=== PATIENT | male | born 1960 | race Caucasian/White ===

== ENCOUNTER → 2016-07-27 | Outpatient (CLI) | payer OTHER ==
[~2016-07-27] MED LIST: ASPI325T39 PO; GLC500 PO; METO50TA16 PO
[2016-07-27 14:03] LABS: BLOOD UREA NITROGEN 19 mg/dl (7-18); BUN/CREATININE RATIO 20.3 (10-20); CALCIUM 8.6 mg/dl (8.5-10.1); CARBON DIOXIDE 27 mmol/L (21-32); CHLORIDE 101 mmol/L (98-107); CHOLESTEROL 147 mg/dl (0-200); CREATININE 0.95 mg/dl (0.60-1.40); GLUCOSE 119 mg/dl (70-99); MAGNESIUM 1.9 mg/dl (1.8-2.4); POTASSIUM 3.7 mmol/L (3.5-5.1); SODIUM 135 mmol/L (136-145); TRIGLYCERIDES 248 mg/dl (0-150); VERY LOW DENSITY LIPOPROT CALC 50 mg/dl
[2016-07-27 14:08] LABS: CHOLESTEROL/HDL RATIO 4.2; HDL CHOLESTEROL 35 mg/dl
[2016-07-27 14:20] LABS: ESTIMATED AVERAGE GLUCOSE 120 mg/dl; HA1C FLAG Normal (Normal)
== END | disposition home or self-care (01) ==
LOC: C.LABSPEC 12:36
PROVIDERS: ATTEND Internal Medicine
DX: E11.9 Type 2 diabetes mellitus without complications (principal); E78.5 Hyperlipidemia, unspecified; I48.91 Unspecified atrial fibrillation

== ENCOUNTER → 2016-11-16 | Outpatient (CLI) | payer OTHER ==
[2016-11-16 13:33] LABS: ESTIMATED AVERAGE GLUCOSE 137 mg/dl; HA1C FLAG Normal (Normal)
[2016-11-16 14:24] LABS: ALT/SGPT 63 U/L (12-78); AST/SGOT 29 U/L (15-37); BLOOD UREA NITROGEN 17 mg/dl (7-18); BUN/CREATININE RATIO 17.1 (10-20); CALCIUM 8.6 mg/dl (8.5-10.1); CARBON DIOXIDE 28 mmol/L (21-32); CHLORIDE 106 mmol/L (98-107); GLUCOSE 120 mg/dl (70-99); SODIUM 141 mmol/L (136-145)
[2016-11-16 14:27] LABS: ALB/GLOB RATIO 1.5 (0.9-2); ALKALINE PHOSPHATASE 53 U/L (45-117); CHOLESTEROL 149 mg/dl (0-200); CHOLESTEROL/HDL RATIO 3.7; HDL CHOLESTEROL 40 mg/dl; TRIGLYCERIDES 269 mg/dl (0-150); VERY LOW DENSITY LIPOPROT CALC 54 mg/dl
== END | disposition home or self-care (01) ==
LOC: C.LABSPEC 12:39
PROVIDERS: ATTEND Internal Medicine
DX: E11.9 Type 2 diabetes mellitus without complications (principal); E78.5 Hyperlipidemia, unspecified; I48.91 Unspecified atrial fibrillation

== ENCOUNTER → 2017-02-22 | Outpatient (CLI) | payer OTHER ==
[2017-02-22 13:24] LABS: ESTIMATED AVERAGE GLUCOSE 140 mg/dl; HA1C FLAG Normal (Normal)
[2017-02-22 13:48] LABS: ALT/SGPT 56 U/L (12-78); BLOOD UREA NITROGEN 14 mg/dl (7-18); CALCIUM 8.7 mg/dl (8.5-10.1); CARBON DIOXIDE 24 mmol/L (21-32); CHLORIDE 106 mmol/L (98-107); CHOLESTEROL 149 mg/dl (0-200); GLUCOSE 139 mg/dl (70-99); SODIUM 140 mmol/L (136-145); TRIGLYCERIDES 322 mg/dl (0-150); VERY LOW DENSITY LIPOPROT CALC 64 mg/dl
[2017-02-22 13:51] LABS: RATIO 6.1 mcg/mg (0-30.0)
[2017-02-22 13:54] LABS: ALB/GLOB RATIO 1.5 (0.9-2); ALKALINE PHOSPHATASE 48 U/L (45-117); AST/SGOT 26 U/L (15-37); CHOLESTEROL/HDL RATIO 4.3; HDL CHOLESTEROL 35 mg/dl
== END | disposition home or self-care (01) ==
LOC: C.LABSPEC 12:15
PROVIDERS: ATTEND Internal Medicine
DX: E11.9 Type 2 diabetes mellitus without complications (principal); E78.5 Hyperlipidemia, unspecified; I48.0 Paroxysmal atrial fibrillation

== ENCOUNTER → 2017-08-30 | Outpatient (CLI) | payer OTHER ==
[2017-08-30 14:24] LABS: HEMOGLOBIN A1C 6.6 % (4.5-5.6)
[2017-08-30 16:13] LABS: BLOOD UREA NITROGEN 16 mg/dl (7-18); CARBON DIOXIDE 25 mmol/L (21-32); CREATININE 1.12 mg/dl (0.60-1.40); GLUCOSE 147 mg/dl (70-99); SODIUM 136 mmol/L (136-145)
[2017-08-30 16:17] LABS: CHOLESTEROL 149 mg/dl (0-200); LDL CHOLESTEROL (DIRECT) 75 mg/dl
== END | disposition home or self-care (01) ==
LOC: C.LABSPEC 12:44
PROVIDERS: ATTEND Internal Medicine
DX: E11.9 Type 2 diabetes mellitus without complications (principal); I48.91 Unspecified atrial fibrillation; E78.5 Hyperlipidemia, unspecified

== ENCOUNTER 2022-04-18 03:53 | Observation (INO) ==
[2022-04-18] MEDS ORDERED: SODIUM CHLORIDE 0.9% 1000ML 1,000 ML IV SCH (04:15)
[2022-04-18] MEDS ORDERED: METOPROLOL TARTRATE 1 MG/ML VIAL IV STA (04:19)
[2022-04-18 04:44] LABS: Basophils # (auto) 0.06 K/uL (0-0.2); Basophils % (auto) 0.4 %; Eosinophils # (auto) 0.08 K/uL (0-0.50); Eosinophils % (auto) 0.6 %; Hematocrit (blood only) 47.3 % (40.1-51.0); Hemoglobin 17.4 g/dl (14.0-18.0); Immature Granulocytes # (auto) 0.07 K/uL (0.00-0.02); Immature Granulocytes % (auto) 0.5 %; Lymphocytes # (auto) 2.39 K/uL (1.2-3.4); Lymphocytes % (auto) 16.6 %; Mean Corpuscular Hemoglobin 30.5 pg (25.0-34.0); Mean Corpuscular Hgb Conc 36.8 g/dL (32.0-36.0); Mean Corpuscular Volume 82.8 fL (80.0-100.0); Mean Platelet Volume 9.1 fL (9.4-12.4); Monocytes # (auto) 1.21 K/uL (0.24-0.82); Monocytes % (auto) 8.4 %; Neutrophils # (auto) 10.59 K/uL (1.4-6.5); Neutrophils % (auto) 73.5 %; Platelet Count 192 K/uL (130-400); RDW Coefficient of Variation 12.7 % (11.5-14.5); RDW Standard Deviation 37.6 fL (36.4-46.3); Red Blood Count 5.71 M/uL (4.63-6.08)
[2022-04-18 05:01] LABS: INR 1.1 (0.9-1.1); Partial Thromboplastin Ratio 1.3; Partial Thromboplastin Time 36.8 Seconds (21.0-31.0)
[2022-04-18 05:11] LABS: Troponin I High Sensitivity 6.3 pg/ml (0-20)
[2022-04-18] MEDS ORDERED: SODIUM CHLORIDE 0.9% 1000ML 250 ML IV ONE (05:41)
[2022-04-18] MEDS ORDERED: SODIUM CHLORIDE 0.9% 1000ML 1,000 ML IV ONE (05:41)
[2022-04-18 05:45] LABS: Albumin Globulin Ratio 1.7 (0.9-2); Albumin Level 4.3 gm/dl (3.4-5.0); BUN Creatinine Ratio 27.3 (10-20); Calcium 9.7 mg/dl (8.5-10.1); Creatinine Clr Calc Pharmacy 89.3 ml/min; Est GFR (African American) 108.2 ml/min; Est GFR (Non-African American) 93.4 ml/min; Globulin 2.5 gm/dl (2.5-4.0); Magnesium 1.6 mg/dl (1.7-2.4); Potassium 4.1 mmol/L (3.5-5.1); Total Protein 6.8 gm/dl (6.0-8.3)
[2022-04-18] MEDS ORDERED: CEFEPIME 2,000 MG/20 ML VIAL IV STA (05:45)
[2022-04-18 05:56] LABS: Adenovirus PCR Not Detected (NotDetected); Bordetella parapertussis PCR Not Detected (NotDetected); Bordetella pertussis PCR Not Detected (NotDetected); Chlamydia pneumoniae PCR Not Detected (NotDetected); Coronavirus 229E PCR Not Detected (NotDetected); Coronavirus CoV-2 (COVID19)PCR Not Detected (NotDetected); Coronavirus HKU1 PCR Not Detected (NotDetected); Coronavirus NL63 PCR Not Detected (NotDetected); Coronavirus OC43PCR Not Detected (NotDetected); Human Metapneumovirus PCR Not Detected (NotDetected); Influenza A PCR Not Detected (NotDetected); Influenza B PCR Not Detected (NotDetected); Mycoplasma pneumoniae PCR Not Detected (NotDetected); Parainfluenza Virus 2 PCR Not Detected (NotDetected); Parainfluenza Virus 3 PCR Not Detected (NotDetected); Parainfluenza Virus 4 PCR Not Detected (NotDetected); Respiratory Syncytial VirusPCR Not Detected (NotDetected); Rhinovirus/Enterovirus PCR Not Detected (NotDetected)
[2022-04-18 06:07] LABS: Parainfluenza Virus 1 PCR DETECTED (NotDetected)
[2022-04-18] MEDS ORDERED: dilTIAZem HCl 5 MG/ML 5 ML VIAL IV STA ×2 (06:22→07:16)
[2022-04-18] MEDS ORDERED: LACTATED RINGER'S 1,000 ML IV STA (06:30)
[2022-04-18] MEDS: MAGNESIUM SULFATE / D5W 1 GM/100 ML BAG IV SCH ×2 (06:39→09:00)
--- NOTE | 2022-04-18 06:55 | XRay Report ---
XR chest 1V portable CLINICAL HISTORY: Cough, tachycardia. COMPARISON STUDY: Chest radiograph April 28, 2019. FINDINGS: Lung volumes are normal. Lungs are clear. Left lower lung consolidation shown on prior exam of April 28, 2019 has resolved. There is no pneumothorax or pleural effusion. Mild cardiomegaly i s unchanged. Mediastinal contours are normal. There is no evidence for pulmonary edema. IMPRESSION: No acute cardiopulmonary findings. ACT 112: Negative or not required by law. Electronically signed by: Sourav Cain M.D. 04/18/2022 6:53 AM
[2022-04-18 07:00] LABS: HCO3 VBG 21 mmol/L; Oxygen Saturation VBG 79.3 %; PCO2 VBG 34 mmHg (38-50); PO2 VBG 46 mmHg
[2022-04-18] MEDS ORDERED: DOXYCYCLINE HYCLATE 100 MG in DEXTROSE 5% 100 ML IV STA (07:02)
--- NOTE | 2022-04-18 07:02 | History & Physical Report ---
Date of Service April 18, 2022 Assessment & Plan (1) Severe sepsis: Plan: SIRS plus lactic acidosis Secondary to complicated bronchitis Patient positive for Parainfluenza virus type I Rapid A. fib secondary to above History of A. fib status post ablation on Xarelto Medication noncompliance and anxiety contributory hypertension, stable DM2 on oral medications, well-controlled as of recent hemoglobin A1c of 6.7 last August 2021 ongoing tobacco abuse PCU CS, doxycycline IVF, follow lactic acid Facilitate Flecainide and metoprolol hold medications (Patient has taken morning doses of both cardiac medications at the ER already.) Patient counseled regarding need to take flecainide as prescribed twice daily dosing Titrate beta-omid Rx as needed IV Cardizem bolus 1 dose Anxiolytic as needed Update [facility] Cardiology consult is A. fib uncontrolled following initial intervention (Patient known to [facility].) Basal bolus insulin, ISS BG goal 1 10-1 40, carb count coverage DVT prophylaxis. Xarelto Full code Text document was generated using [employer] voice recognition software. It may contain grammatical or spelling errors. Kindly contact undersigned for clarification of any documentation item in question. History of Present Illness Chief Complaint: Palpitations, cough, shortness of breath Primary Care Provider: Christ Turpin MD History obtained from patient, family, and records. Medical history significant for A. fib status post ablation on Xarelto, hypertension, DM2 on oral medications, ongoing tobacco abuse. Last 2010 for new onset A. fib. Patient discharged on Metoprolol and Pradaxa. 2 weeks history of junky cough symptoms and shortness of breath. Chest pain from coughing and palpitations. Denies aspiration. No fluid retention. Sick contacts at home. Patient has not received COVID-19 vaccination. Patient could feel his A. fib at home. Patient given 1 dose of Sudafed at home by . Admits to just taking his flecainide once daily instead of recommended twice daily dosing because he does not feel good taking it. Patient initially hesitant to go to ER despite prodding of his . Patient noted to be in rapid A. fib at the ER. IV Lopressor and cefepime administered at the ER. 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 Allergies Allergy/AdvReac Type Severity Reaction Status Date / Time No Known Allergies Allergy Mild Verified 04/18/22 06:17 Home Medications Medication Instructions Recorded Confirmed Type rivaroxaban 20 mg tablet (Xarelto) 20 mg PO QDD 08/20/18 04/18/22 History dulaglutide 0.75 mg/0.5 mL 0.75 mg subcut WK 04/17/21 04/18/22 History subcutaneous pen injector (Trulicity) flecainide 100 mg tablet 100 mg PO Q12H #180 tabs 02/03/22 04/18/22 Rx metoprolol succinate 100 mg 50 mg PO BID #90 tabs 02/03/22 04/18/22 Rx tablet,extended release 24 hr glipizide 10 mg tablet 10 mg PO BID 04/18/22 04/18/22 History Past Med/Surg History Medical History Afib REASON FOR XARELTO Diabetes mellitus, type 2 History of COVID-19 05/2020 (CONGESTION/FATIGUE>NO CURRENT PROBLEMS) History of depression Surgical History H/O cardiac radiofrequency ablation X 3 ([facility]LAST 2 YEARS AGO) H/O elbow surgery RT ULNAR NERVE REPAIR H/O hernia repair History of colonoscopy History of tooth extraction Family History Father Family history of diabetes mellitus Other No family history of adverse response to anesthesia No pertinent family history in first degree relatives Social History Smoking Status: Current every day smoker Cigarettes Per Day: A COUPLE TIMES A WEEK (ADVISED); Second Hand Exposure: Yes; Hx Alcohol Use: No Hx Substance Use: Yes Last Used Substance: Unknown Last Used Substance Other:: LAST USED "DAYS AGO" ADVISED Preferred Language: Hungarian Communication Ability: Effective 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: No Beliefs That Will Affect Care: None marital status: Current Living Situation: Spouse current occupational status: employed Other Information That Helps Us Care for You: No Feels Safe at Home: Yes Safety Concerns: Feels Safe At This Time Assistive Devices: None Review of Systems 2 Review of Systems: As per HPI, all other systems reviewed and negative Physical Exam Physical Exam: GENERAL: Slightly uncomfortable, slightly anxious, no respiratory distress SKIN: Normal color, warm HEENT: [place] palpebral conjunctivae, no ptosis, dry buccal mucosa NECK : Supple, no tenderness CHEST : Decreased breath sounds, occasional expiratory wheezes, no tenderness HEART : Irregular, tachycardic, no obvious murmurs ABDOMEN: Some distention, nontender EXTREMITIES : No LE swelling/tenderness, no other conspicuous deformities noted NEUROLOGIC : Coherent, no facial asymmetry, no other gross focality Results & Data Results & Data ([facility]) Vital Signs (Past 12 Hours) Vital Signs Temp Pulse Pulse Resp BP BP Pulse Ox 04/18/22 06:25 76 28 H 97 04/18/22 06:20 126 H 15 93 04/18/22 06:15 144 H 17 95 04/18/22 06:15 105/80 04/18/22 06:10 134 H 22 94 04/18/22 06:05 145 H 18 95 04/18/22 05:50 122 H 15 95 04/18/22 05:45 133 H 17 96 04/18/22 05:45 117/76 04/18/22 05:40 118 H 20 95 04/18/22 05:35 114 H 23 95 04/18/22 05:31 126/77 04/18/22 05:31 81 21 95 04/18/22 05:30 80 21 95 04/18/22 05:25 85 16 96 04/18/22 05:20 81 19 96 04/18/22 05:15 127 H 20 95 04/18/22 05:10 132 H 20 93 04/18/22 05:05 85 19 95 04/18/22 05:00 82 17 94 04/18/22 04:55 87 23 96 04/18/22 04:50 81 15 97 04/18/22 04:45 76 20 97 04/18/22 04:44 122/77 04/18/22 04:44 81 22 98 04/18/22 04:50 79 04/18/22 04:40 146 H 22 97 04/18/22 04:30 151 H 25 H 97 04/18/22 04:20 150 H 22 95 04/18/22 04:10 150 H 25 H 98 04/18/22 04:06 150 H 22 04/18/22 04:06 127/70 04/18/22 04:46 97 04/18/22 04:46 77 122/77 98 04/18/22 03:56 36.6 C 122 H 22 132/86 98 O2 Del Method 04/18/22 06:25 04/18/22 06:20 04/18/22 06:15 04/18/22 06:15 04/18/22 06:10 04/18/22 06:05 04/18/22 05:50 04/18/22 05:45 04/18/22 05:45 04/18/22 05:40 04/18/22 05:35 04/18/22 05:31 04/18/22 05:31 04/18/22 05:30 04/18/22 05:25 04/18/22 05:20 04/18/22 05:15 04/18/22 05:10 04/18/22 05:05 04/18/22 05:00 04/18/22 04:55 04/18/22 04:50 04/18/22 04:45 04/18/22 04:44 04/18/22 04:44 04/18/22 04:50 04/18/22 04:40 04/18/22 04:30 04/18/22 04:20 04/18/22 04:10 04/18/22 04:06 04/18/22 04:06 04/18/22 04:46 Room Air 04/18/22 04:46 Room Air 04/18/22 03:56 Room Air Laboratory Results Laboratory Results WBC 14.40 K/ul (4.8-10.8) H 04/18/22 04:07 RBC 5.71 M/uL (4.63-6.08) 04/18/22 04:07 Hgb 17.4 g/dl (14.0-18.0) 04/18/22 04:07 Hct 47.3 % (40.1-51.0) 04/18/22 04:07 MCV 82.8 fL (80.0-100.0) 04/18/22 04:07 MCH 30.5 pg (25.0-34.0) 04/18/22 04:07 MCHC 36.8 g/dL (32.0-36.0) H 04/18/22 04:07 RDW Std Deviation 37.6 fL (36.4-46.3) 04/18/22 04:07 RDW Coeff of Syd 12.7 % (11.5-14.5) 04/18/22 04:07 Plt Count 192 K/uL (130-400) 04/18/22 04:07 MPV 9.1 fL (9.4-12.4) L 04/18/22 04:07 Immature Gran % (Auto) 0.5 % 04/18/22 04:07 Neut % (Auto) 73.5 % 04/18/22 04:07 Lymph % (Auto) 16.6 % 04/18/22 04:07 [place] % (Auto) 8.4 % 04/18/22 04:07 Eos % (Auto) 0.6 % 04/18/22 04:07 Baso % (Auto) 0.4 % 04/18/22 04:07 Neut # (Auto) 10.59 K/uL (1.4-6.5) H 04/18/22 04:07 Lymph # (Auto) 2.39 K/uL (1.2-3.4) 04/18/22 04:07 [place] # (Auto) 1.21 K/uL (0.24-0.82) H 04/18/22 04:07 Eos # (Auto) 0.08 K/uL (0-0.50) 04/18/22 04:07 Baso # (Auto) 0.06 K/uL (0-0.2) 04/18/22 04:07 Immature Gran # (Auto) 0.07 K/uL (0.00-0.02) H 04/18/22 04:07 PT 12.0 Seconds (9.0-12.0) 04/18/22 04:07 INR 1.1 (0.9-1.1) 04/18/22 04:07 APTT 36.8 Seconds (21.0-31.0) H 04/18/22 04:07 PTT Ratio 1.3 04/18/22 04:07 Sodium 135 mmol/L (136-145) L 04/18/22 04:07 Potassium 4.1 mmol/L (3.5-5.1) 04/18/22 04:07 Chloride 105 mmol/L (98-107) 04/18/22 04:07 Carbon Dioxide 18 mmol/L (21-32) L 04/18/22 04:07 Anion Gap 12 (3-11) H 04/18/22 04:07 BUN 24 mg/dl (6-23) H 04/18/22 04:07 Creatinine 0.88 mg/dl (0.6-1.4) 04/18/22 04:07 Est Cr Clr Drug Dosing 89.3 ml/min 04/18/22 04:07 Est GFR ( Amer) 108.2 ml/min 04/18/22 04:07 Est GFR (Non-Af Amer) 93.4 ml/min 04/18/22 04:07 BUN/Creatinine Ratio 27.3 (10-20) H 04/18/22 04:07 Glucose 224 mg/dl (70-99(Fasting)) H 04/18/22 04:07 Lactate 2.4 mmol/L (0.4-2.0) H* 04/18/22 04:29 Calcium 9.7 mg/dl (8.5-10.1) 04/18/22 04:07 Magnesium 1.6 mg/dl (1.7-2.4) L 04/18/22 04:07 Total Bilirubin 1.0 mg/dl (0.2-1.0) 04/18/22 04:07 AST 20 U/L (13-39) 04/18/22 04:07 ALT 38 U/L (7-52) 04/18/22 04:07 Alkaline Phosphatase 63 U/L (34-104) 04/18/22 04:07 Troponin I High Sens 6.3 pg/ml (0-20) 04/18/22 04:07 Total Protein 6.8 gm/dl (6.0-8.3) 04/18/22 04:07 Albumin 4.3 gm/dl (3.4-5.0) 04/18/22 04:07 Globulin 2.5 gm/dl (2.5-4.0) 04/18/22 04:07 Albumin/Globulin Ratio 1.7 (0.9-2) 04/18/22 04:07 Adenovirus (PCR) Not Detected (NotDetected) 04/18/22 Unknown B. pertussis DNA (PCR) Not Detected (NotDetected) 04/18/22 Unknown B.parapertussis DNA PCR Not Detected (NotDetected) 04/18/22 Unknown C. pneumoniae DNA (PCR) Not Detected (NotDetected) 04/18/22 Unknown Coronavirus OC43 (PCR) Not Detected (NotDetected) 04/18/22 Unknown Coronavirus HKU1 (PCR) Not Detected (NotDetected) 04/18/22 Unknown Coronavirus 229E (PCR) Not Detected (NotDetected) 04/18/22 Unknown SARS-CoV-2 (PCR) Not Detected (NotDetected) 04/18/22 Unknown Coronavirus NL63 (PCR) Not Detected (NotDetected) 04/18/22 Unknown Human Metapneumovir PCR Not Detected (NotDetected) 04/18/22 Unknown Influenza Type A (PCR) Not Detected (NotDetected) 04/18/22 Unknown Influenza Type B (PCR) Not Detected (NotDetected) 04/18/22 Unknown M. pneumoniae (PCR) Not Detected (NotDetected) 04/18/22 Unknown Parainfluenza 1 (PCR) DETECTED (NotDetected) A* 04/18/22 Unknown Parainfluenza 2 (PCR) Not Detected (NotDetected) 04/18/22 Unknown Parainfluenza 3 (PCR) Not Detected (NotDetected) 04/18/22 Unknown Parainfluenza 4 (PCR) Not Detected (NotDetected) 04/18/22 Unknown RSV (PCR) Not Detected (NotDetected) 04/18/22 Unknown Entero/Rhino (PCR) Not Detected (NotDetected) 04/18/22 Unknown Impressions Chest X-Ray 04/18/22 04:14 XR chest 1V portable CLINICAL HISTORY: Cough, tachycardia. COMPARISON STUDY: Chest radiograph April 28, 2019. FINDINGS: Lung volumes are normal. Lungs are clear. Left lower lung consolidation shown on prior exam of April 28, 2019 has resolved. There is no pneumothorax or pleural effusion. Mild cardiomegaly is unchanged. Mediastinal contours are normal. There is no evidence for pulmonary edema. IMPRESSION: No acute cardiopulmonary findings. ACT 112: Negative or not required by law. Electronically signed by: Sourav Cain M.D. 04/18/2022 6:53 AM Diagnostic Findings EKG as per my interpretation : Rate 150, A. fib, normal axis, septal infarct, T wave abnormalities lateral leads
[2022-04-18] MEDS ORDERED: LORazepam 0.5 MG TAB PO STA (07:21)
[2022-04-18] MEDS ORDERED: LORazepam 0.5 MG TAB PO PRN (07:21)
[2022-04-18] MEDS ORDERED: CARBOHYDRATES FOR HYPOGLYCEMIA PO PRN (08:51)
[2022-04-18] MEDS ORDERED: DEXTROSE 50% 50 ML SYRINGE IV PRN (08:51)
[2022-04-18] MEDS ORDERED: GLUCAGON FOR INJ 1 MG VIAL SQ PRN (08:51)
[2022-04-18] MEDS ORDERED: GLUCOSE 10 TAB/TUBE PO PRN (08:51)
[2022-04-18] MEDS ORDERED: GLUCOSE 40% GEL 15 GM TUBE PO PRN (08:51)
[2022-04-18] MEDS ORDERED: traMADol HCL 50 MG TABLET PO PRN (08:51)
[2022-04-18] MEDS ORDERED: ACETAMINOPHEN 325 MG TAB PO PRN (08:51)
[2022-04-18] MEDS ORDERED: PROMETHAZINE HCL 12.5 MG in SODIUM CHLORIDE 0.9% 50 ML IV PRN (08:51)
[2022-04-18] MEDS ORDERED: LANTUS PER UNIT CHARGE SQ SCH (09:00)
[2022-04-18 09:57] LABS: Appearance Urine Clear (Clear); Bilirubin Urine Negative (Negative); Blood Urine Negative (Negative); Color Urine Yellow; Glucose Urine UA 2+ (Negative); Ketones Urine Negative (Negative); Leukocyte Esterase Urine Negative (Negative); Nitrite Urine Negative (Negative); Protein Urine Negative (Negative); Specific Gravity Urine 1.013 (1.000-1.030); Urobilinogen Urine Negative (Negative)
[2022-04-18] MEDS: INSULIN ASPART PER UNIT SC SCH ×4 (10:35→21:26)
[2022-04-18] MEDS: FLECAINIDE ACETATE 100 MG TABLET PO SCH ×2 (11:46→21:10)
--- NOTE | 2022-04-18 14:47 | Hospitalist Progress Note ---
Date of Service April 18, 2022 Assessment & Plan (1) Severe sepsis: Plan 61-year-old male with PMH of A. fib status post ablation on Xarelto, HTN, DM2 on oral meds, ongoing tobacco abuse presented 04/18 with complaint of 2-week of history of junky cough symptoms and shortness of breath with productive yellowish/greenish sputum and associated with chest pain from coughing. Patient denies aspiration. Patient has not received COVID-19 vaccination. He takes his flecainide once daily instead of recommended twice daily dosing because he does not feel good taking it. Patient was noted to be in A. fib RVR at the ED. He is being managed for the following: Severe sepsis POA: At presentation --> WBC 14.4K, lactic acid 2.4, OR and RR elevated, complicated bronchitis. Likely complicated bronchitis Parainfluenza virus type I infection: Droplet isolation Patient presents with increasing cough associated with greenish-yellow sputum [see above] Admitting CXR with no acute findings Admitting blood culture pending Continue with doxycycline 04/18 Patient reports improving cough, will continue to monitor sputum. Patient on room air, reports feeling better. Lactic acidosis normalized. Can DC IV fluids once patient starts eating better. A. fib with RVR: Secondary to acute illness. Medication noncompliance and anxiety contributory. Continue telemetry, continue home meds, heart rate getting better. Patient to follow-up with his cardio and EP as outpatient. Titrate beta-omid treatment as needed. Anxiolytic as needed. Follow-up echo. Low threshold for cardiology consult if A. fib remains uncontrolled. Patient known to be uner [facility] cardiology. Other chronic medical conditions: HTN, DM2 [A1c of 6.7 last August 2021], ongoing tobacco abuse -->> continue with/resume home meds as and when able. SSI while inpatient. DVT prophylaxis: Patient on Xarelto Full code Admission and Anticipated Discharge Date Admission Date: April 18, 2022 Subjective Patient seen and examined at bedside as a follow-up of severe sepsis POA secondary to complicated bronchitis, lactic acidosis, apparently onset type I virus infection. Patient was lying in bed, on room air, NAD, reports decreasing cough, reports he started feeling better, denies any new acute event overnight, reports eating okay and moving bowels okay, denies headache or dizziness or chest pain or palpitation or belly pain other review of symptoms. He does have productive cough with greenish-yellow sputum per him. Physical Exam Physical Exam: GENERAL: Alert and oriented x3. NAD, on RA. HEENT: No pallor, no icterus. Pupils equal, round and reactive to light. Oral mucosa moist. NECK: No JVD, no neck masses. HEART: S1 and S2 heard. irregular rate and rhythm. No murmur, no gallop. RESPIRATORY SYSTEM: Normal AP diameter. No accessory muscle use. No wheezing, no crackles. ABDOMEN: Soft, bowel sounds present, nontender, no distention. CENTRAL NERVOUS SYSTEM: No facial droop. Speech is clear. Obeys simple commands. Moves extremities. EXTREMITIES: No edema, no erythema seen. Results & Data Results & Data ([facility]) Vital Signs (Past 12 Hours) Vital Signs Temp Pulse Pulse Resp BP BP Pulse Ox 04/18/22 11:30 36.6 C 100 H 20 114/74 98 04/18/22 08:51 121 H 04/18/22 08:51 36.4 C L 117 H 20 133/91 96 04/18/22 08:54 04/18/22 08:06 04/18/22 07:48 74 20 123/91 95 04/18/22 07:24 138 H 24 126/83 97 04/18/22 07:12 129 H 24 126/83 96 04/18/22 06:25 76 28 H 97 04/18/22 06:20 126 H 15 93 04/18/22 06:15 144 H 17 95 04/18/22 06:15 105/80 04/18/22 06:10 134 H 22 94 04/18/22 06:05 145 H 18 95 04/18/22 05:50 122 H 15 95 04/18/22 05:45 133 H 17 96 04/18/22 05:45 117/76 04/18/22 05:40 118 H 20 95 04/18/22 05:35 114 H 23 95 04/18/22 05:31 126/77 04/18/22 05:31 81 21 95 04/18/22 05:30 80 21 95 04/18/22 05:25 85 16 96 04/18/22 05:20 81 19 96 04/18/22 05:15 127 H 20 95 04/18/22 05:10 132 H 20 93 04/18/22 05:05 85 19 95 04/18/22 05:00 82 17 94 04/18/22 04:55 87 23 96 04/18/22 04:50 81 15 97 04/18/22 04:45 76 20 97 04/18/22 04:44 122/77 04/18/22 04:44 81 22 98 04/18/22 04:50 79 04/18/22 04:40 146 H 22 97 04/18/22 04:30 151 H 25 H 97 04/18/22 04:20 150 H 22 95 04/18/22 04:10 150 H 25 H 98 04/18/22 04:06 150 H 22 04/18/22 04:06 127/70 04/18/22 04:46 97 04/18/22 04:46 77 122/77 98 04/18/22 03:56 36.6 C 122 H 22 132/86 98 O2 Del Method O2 Flow Rate 04/18/22 11:30 Room Air 04/18/22 08:51 04/18/22 08:51 Room Air 04/18/22 08:54 Room Air 04/18/22 08:06 Room Air 04/18/22 07:48 74 04/18/22 07:24 Room Air 04/18/22 07:12 Room Air 04/18/22 06:25 04/18/22 06:20 04/18/22 06:15 04/18/22 06:15 04/18/22 06:10 04/18/22 06:05 04/18/22 05:50 04/18/22 05:45 04/18/22 05:45 04/18/22 05:40 04/18/22 05:35 04/18/22 05:31 04/18/22 05:31 04/18/22 05:30 04/18/22 05:25 04/18/22 05:20 04/18/22 05:15 04/18/22 05:10 04/18/22 05:05 04/18/22 05:00 04/18/22 04:55 04/18/22 04:50 04/18/22 04:45 04/18/22 04:44 04/18/22 04:44 04/18/22 04:50 04/18/22 04:40 04/18/22 04:30 04/18/22 04:20 04/18/22 04:10 04/18/22 04:06 04/18/22 04:06 04/18/22 04:46 Room Air 04/18/22 04:46 Room Air 04/18/22 03:56 Room Air
[2022-04-18] MEDS ORDERED: RIVAROXABAN 20 MG TAB PO SCH (16:30)
--- NOTE | 2022-04-18 20:13 | XCELERA ---
[id number]
[2022-04-18] MEDS ORDERED: METOPROLOL SUCC 50MG EXT REL TAB PO SCH (21:00)
[2022-04-18] MEDS: LANTUS PER UNIT CHARGE SQ SCH (21:27)
[2022-04-18] MEDS: DOXYCYCLINE HYCLATE 100 MG CAP PO SCH (21:28)
--- NOTE | 2022-04-18 23:16 | Emergency Department Note ---
History of Present Illness General Chief complaint: Tachycardia Stated complaint: AFIB/TACHYCARDIA/COUGH Time Seen by Provider: 04/18/22 04:02 History of Present Illness This is a 61-year-old male presenting to the emergency department for evaluation of persistent cough and chest discomfort symptoms over the past 2 weeks. The patient states that his was ill with influenza about 2 weeks ago but she has recovered without complication. The patient has not had significant fevers or chills. His symptoms have been slowly escalating in nature. They worsened tonight when he went out in the cold air, and now has a much worse cough. The patient has a history of diabetes and A. fib. He is on Xarelto and metoprolol. He has had pneumonia in the past and is concerned about the same. He is a smoker. He has not taken anything [id number] for symptoms today. Home Medications Medication Instructions Recorded Confirmed Type rivaroxaban 20 mg tablet (Xarelto) 20 mg PO QDD 08/20/18 04/18/22 History dulaglutide 0.75 mg/0.5 mL 0.75 mg subcut WK 04/17/21 04/18/22 History subcutaneous pen injector (Trulicity) flecainide 100 mg tablet 100 mg PO Q12H #180 tabs 02/03/22 04/18/22 Rx metoprolol succinate 100 mg 50 mg PO BID #90 tabs 02/03/22 04/18/22 Rx tablet,extended release 24 hr glipizide 10 mg tablet 10 mg PO BID 04/18/22 04/18/22 History Allergies Allergy/AdvReac Type Severity Reaction Status Date / Time No Known Allergies Allergy Mild Verified 04/18/22 06:17 Past Med/Surg History Medical History Afib REASON FOR XARELTO Diabetes mellitus, type 2 History of COVID-19 05/2020 (CONGESTION/FATIGUE>NO CURRENT PROBLEMS) History of depression Surgical History H/O cardiac radiofrequency ablation X 3 ([facility]>LAST 2 YEARS AGO) H/O elbow surgery RT ULNAR NERVE REPAIR H/O hernia repair History of colonoscopy History of tooth extraction Family History Father Family history of diabetes mellitus Other No family history of adverse response to anesthesia No pertinent family history in first degree relatives Social History Smoking Status: Current every day smoker Cigarettes Per Day: A COUPLE TIMES A WEEK (ADVISED); Second Hand Exposure: Yes; Hx Alcohol Use: No Hx Substance Use: Yes Last Used Substance: Unknown Last Used Substance Other:: LAST USED "DAYS AGO" ADVISED Preferred Language: Mohawk Communication Ability: Effective Geophysics Scientist Required: No Beliefs That Will Affect Care: None marital status: Current Living Situation: Spouse current occupational status: employed Other Information That Helps Us Care for You: No Feels Safe at Home: Yes Safety Concerns: Feels Safe At This Time Assistive Devices: None Review of Systems A total of 10 systems reviewed and were otherwise negative Physical Exam Vital Signs Vital Signs - 24 hr 04/18/22 03:56 04/18/22 04:46 04/18/22 04:46 Temperature 36.6 C Temperature Source Temporal Artery Scan Pulse Rate 122 H Pulse Rate [Right] 77 Pulse Rate from SpO2 Sensor Pulse Rhythm [Right] Respiratory Rate 22 Respiratory Depth Blood Pressure 132/86 Blood Pressure [Right Arm] 122/77 Blood Pressure Mean 101 Blood Pressure Mean [Right Arm] 92 Blood Pressure Position Sitting Blood Pressure Position [Right Arm] Lying Pulse Oximetry 98 98 97 Oxygen Delivery Method Room Air Room Air Room Air Sepsis Recent Fever Within 48 Hours No Sepsis New/Unexplained Change in Mental Status N/A Sepsis Action Taken by Nursing No Action Required 04/18/22 04:06 04/18/22 04:06 04/18/22 04:10 Temperature Temperature Source Pulse Rate 150 H 150 H Pulse Rate [Right] Pulse Rate from SpO2 Sensor 136 H Pulse Rhythm [Right] Respiratory Rate 22 25 H Respiratory Depth Blood Pressure 127/70 Blood Pressure [Right Arm] Blood Pressure Mean 89 Blood Pressure Mean [Right Arm] Blood Pressure Position Blood Pressure Position [Right Arm] Pulse Oximetry 98 Oxygen Delivery Method Sepsis Recent Fever Within 48 Hours Sepsis New/Unexplained Change in Mental Status Sepsis Action Taken by Nursing 04/18/22 04:20 04/18/22 04:30 04/18/22 04:40 Temperature Temperature Source Pulse Rate 150 H 151 H 146 H Pulse Rate [Right] Pulse Rate from SpO2 Sensor 125 H 120 H 130 H Pulse Rhythm [Right] Respiratory Rate 22 25 H 22 Respiratory Depth Blood Pressure Blood Pressure [Right Arm] Blood Pressure Mean Blood Pressure Mean [Right Arm] Blood Pressure Position Blood Pressure Position [Right Arm] Pulse Oximetry 95 97 97 Oxygen Delivery Method Sepsis Recent Fever Within 48 Hours Sepsis New/Unexplained Change in Mental Status Sepsis Action Taken by Nursing 04/18/22 04:50 04/18/22 04:44 04/18/22 04:44 Temperature Temperature Source Pulse Rate 81 Pulse Rate [Right] 79 Pulse Rate from SpO2 Sensor 78 Pulse Rhythm [Right] Regular Respiratory Rate 22 Respiratory Depth Blood Pressure 122/77 Blood Pressure [Right Arm] Blood Pressure Mean 92 Blood Pressure Mean [Right Arm] Blood Pressure Position Blood Pressure Position [Right Arm] Pulse Oximetry 98 Oxygen Delivery Method Sepsis Recent Fever Within 48 Hours Sepsis New/Unexplained Change in Mental Status Sepsis Action Taken by Nursing 04/18/22 04:45 04/18/22 04:50 04/18/22 04:55 Temperature Temperature Source Pulse Rate 76 81 87 Pulse Rate [Right] Pulse Rate from SpO2 Sensor 76 72 89 Pulse Rhythm [Right] Respiratory Rate 20 15 23 Respiratory Depth Blood Pressure Blood Pressure [Right Arm] Blood Pressure Mean Blood Pressure Mean [Right Arm] Blood Pressure Position Blood Pressure Position [Right Arm] Pulse Oximetry 97 97 96 Oxygen Delivery Method Sepsis Recent Fever Within 48 Hours Sepsis New/Unexplained Change in Mental Status Sepsis Action Taken by Nursing 04/18/22 05:00 04/18/22 05:05 04/18/22 05:10 Temperature Temperature Source Pulse Rate 82 85 132 H Pulse Rate [Right] Pulse Rate from SpO2 Sensor 67 49 L 125 H Pulse Rhythm [Right] Respiratory Rate 17 19 20 Respiratory Depth Blood Pressure Blood Pressure [Right Arm] Blood Pressure Mean Blood Pressure Mean [Right Arm] Blood Pressure Position Blood Pressure Position [Right Arm] Pulse Oximetry 94 95 93 Oxygen Delivery Method Sepsis Recent Fever Within 48 Hours Sepsis New/Unexplained Change in Mental Status Sepsis Action Taken by Nursing 04/18/22 05:15 04/18/22 05:20 04/18/22 05:25 Temperature Temperature Source Pulse Rate 127 H 81 85 Pulse Rate [Right] Pulse Rate from SpO2 Sensor 121 H 79 65 Pulse Rhythm [Right] Respiratory Rate 20 19 16 Respiratory Depth Blood Pressure Blood Pressure [Right Arm] Blood Pressure Mean Blood Pressure Mean [Right Arm] Blood Pressure Position Blood Pressure Position [Right Arm] Pulse Oximetry 95 96 96 Oxygen Delivery Method Sepsis Recent Fever Within 48 Hours Sepsis New/Unexplained Change in Mental Status Sepsis Action Taken by Nursing 04/18/22 05:30 04/18/22 05:31 04/18/22 05:31 Temperature Temperature Source Pulse Rate 80 81 Pulse Rate [Right] Pulse Rate from SpO2 Sensor 80 79 Pulse Rhythm [Right] Respiratory Rate 21 21 Respiratory Depth Blood Pressure 126/77 Blood Pressure [Right Arm] Blood Pressure Mean 93 Blood Pressure Mean [Right Arm] Blood Pressure Position Blood Pressure Position [Right Arm] Pulse Oximetry 95 95 Oxygen Delivery Method Sepsis Recent Fever Within 48 Hours Sepsis New/Unexplained Change in Mental Status Sepsis Action Taken by Nursing 04/18/22 05:35 04/18/22 05:40 04/18/22 05:45 Temperature Temperature Source Pulse Rate 114 H 118 H Pulse Rate [Right] Pulse Rate from SpO2 Sensor 109 H 111 H Pulse Rhythm [Right] Respiratory Rate 23 20 Respiratory Depth Blood Pressure 117/76 Blood Pressure [Right Arm] Blood Pressure Mean 89 Blood Pressure Mean [Right Arm] Blood Pressure Position Blood Pressure Position [Right Arm] Pulse Oximetry 95 95 Oxygen Delivery Method Sepsis Recent Fever Within 48 Hours Sepsis New/Unexplained Change in Mental Status Sepsis Action Taken by Nursing 04/18/22 05:45 04/18/22 05:50 04/18/22 06:05 Temperature Temperature Source Pulse Rate 133 H 122 H 145 H Pulse Rate [Right] Pulse Rate from SpO2 Sensor 130 H 114 H 124 H Pulse Rhythm [Right] Respiratory Rate 17 15 18 Respiratory Depth Blood Pressure Blood Pressure [Right Arm] Blood Pressure Mean Blood Pressure Mean [Right Arm] Blood Pressure Position Blood Pressure Position [Right Arm] Pulse Oximetry 96 95 95 Oxygen Delivery Method Sepsis Recent Fever Within 48 Hours Sepsis New/Unexplained Change in Mental Status Sepsis Action Taken by Nursing 04/18/22 06:10 04/18/22 06:15 04/18/22 06:15 Temperature Temperature Source Pulse Rate 134 H 144 H Pulse Rate [Right] Pulse Rate from SpO2 Sensor 136 H 120 H Pulse Rhythm [Right] Respiratory Rate 22 17 Respiratory Depth Blood Pressure 105/80 Blood Pressure [Right Arm] Blood Pressure Mean 88 Blood Pressure Mean [Right Arm] Blood Pressure Position Blood Pressure Position [Right Arm] Pulse Oximetry 94 95 Oxygen Delivery Method Sepsis Recent Fever Within 48 Hours Sepsis New/Unexplained Change in Mental Status Sepsis Action Taken by Nursing 04/18/22 06:20 04/18/22 06:25 04/18/22 07:12 Temperature Temperature Source Pulse Rate 126 H 76 Pulse Rate [Right] 129 H Pulse Rate from SpO2 Sensor 110 H 79 Pulse Rhythm [Right] Irregular Respiratory Rate 15 28 H 24 Respiratory Depth Normal Blood Pressure Blood Pressure [Right Arm] 126/83 Blood Pressure Mean Blood Pressure Mean [Right Arm] 97 Blood Pressure Position Blood Pressure Position [Right Arm] Pulse Oximetry 93 97 96 Oxygen Delivery Method Room Air Sepsis Recent Fever Within 48 Hours Sepsis New/Unexplained Change in Mental Status Sepsis Action Taken by Nursing VITALS: Vitals are noted on the nurse's note and reviewed by myself. Vital signs with tachycardia. GENERAL: Ill-appearing white male who is tachycardic on arrival. He is cooperative and not toxic. HEAD: Normocephalic atraumatic. EARS: External ear normal. External auditory canals clear, tympanic membranes pearly sanchez without erythema or effusion bilaterally. EYES: Pupils equal round and reactive to light and accommodation. Conjunctivae without injection, sclerae without icterus. Extraocular movements intact. NOSE: Patent, turbinates without inflammation or discharge. MOUTH: Mucous membranes moist. Tonsils are not enlarged. Pharynx without erythema, blood, or exudate. Uvula midline. Airway patent. NECK: Supple without nuchal rigidity. No lymphadenopathy. No thyromegaly. Cervical spine is nontender. HEART: Irregularly irregular LUNGS: Clear to auscultation bilaterally without wheezes, rales or rhonchi. No retractions or accessory muscle use. Persistent coarse/wet cough noted. ABDOMEN: Positive normal bowel sounds x 4. Soft, nontender, without masses or organomegaly. No guarding or rebound tenderness. MUSCULOSKELETAL: No muscle atrophy, erythema, or edema noted. Full range of motion in all extremities. Course Administered Medications Doxycycline Hyclate (Doxycycline Hyclate 100 Mg Cap) 100 mg PO BID [facility]; Protocol Stop: 04/25/22 20:59 Last Admin: 04/18/22 21:28 Dose: 100 mg Documented By: KENDRA Flecainide Acetate (Flecainide Acetate 100 Mg Tablet) 100 mg PO BID [facility] Stop: 05/18/22 21:59 Last Admin: 04/18/22 21:10 Dose: Not Given Documented By: Admin: 04/18/22 11:46 Dose: Not Given Documented By: MANOLO Insulin Aspart (Insulin Aspart Per Unit) 0 units SC ACHS ESTELLE Stop: 05/18/22 08:50 Last Admin: 04/18/22 21:26 Dose: 2 units Documented By: KENDRA Co-signed By: JANETH Admin: 04/18/22 17:28 Dose: 4 units Documented By: MANOLO Co-signed By: KAYA Admin: 04/18/22 12:42 Dose: 9 units Documented By: MANOLO Co-signed By: KAYA Admin: 04/18/22 10:35 Dose: 8 units Documented By: MANOLO Co-signed By: KAYA Insulin Glargine (Lantus Per Unit Charge) 5 units SQ BID ESTELLE Stop: 05/18/22 20:59 Last Admin: 04/18/22 21:27 Dose: 5 units Documented By: KENDRA Co-signed By: JANETH Metoprolol Succinate (Metoprolol Succ 50mg Ext Rel Tab) 50 mg PO BID ESTELLE Stop: 05/18/22 20:59 Last Admin: 04/18/22 21:11 Dose: Not Given Documented By: KENDRA Rivaroxaban (Rivaroxaban 20 Mg Tab) 20 mg PO QDD ESTELLE Stop: 05/18/22 16:29 Last Admin: 04/18/22 17:30 Dose: 20 mg Documented By: MANOLO Discontinued Medications Diltiazem HCl (Diltiazem Hcl 5 Mg/Ml 5 Ml Vial) 15 mg IV NOW STA Stop: 04/18/22 06:23 Last Admin: 04/18/22 06:34 Dose: Not Given Documented By: TORREY Diltiazem HCl (Diltiazem Hcl 5 Mg/Ml 5 Ml Vial) 10 mg IV NOW STA Stop: 04/18/22 07:17 Last Admin: 04/18/22 07:27 Dose: 10 mg Documented By: THONY Co-signed By: AKSHAT Sodium Chloride (Nss 1000ml) 1,000 mls @ 999 mls/hr IV .Q1H1M ESTELLE Stop: 04/18/22 05:15 Last Infusion: 04/18/22 05:30 Dose: 0 mls/hr Documented By: Admin: 04/18/22 04:28 Dose: 999 mls/hr Documented By: TORREY Sodium Chloride (Nss 1000ml) 1,000 mls @ 999 mls/hr IV .Q1H1M ONE Stop: 04/18/22 06:41 Last Infusion: 04/18/22 07:57 Dose: 0 mls/hr Documented By: Admin: 04/18/22 06:04 Dose: 999 mls/hr Documented By: TORREY Sodium Chloride (Nss 1000ml) 250 mls @ 999 mls/hr IV .Q16M ONE Stop: 04/18/22 05:56 Last Admin: 04/18/22 06:33 Dose: Not Given Documented By: TORREY Cefepime HCl (Maxipime) 2,000 mg in 20 mls @ 5 mls/min IV NOW STA; Protocol Stop: 04/18/22 05:48 Last Admin: 04/18/22 06:04 Dose: 5 mls/min Documented By: TORREY Magnesium Sulfate/Dextrose (Magnesium Sulfate / D5w) 1 gm in 100 mls @ 50 mls/hr IV Q2H ESTELLE Stop: 04/18/22 10:29 Last Infusion: 04/18/22 11:43 Dose: 0 mls/hr Documented By: Admin: 04/18/22 09:00 Dose: 50 mls/hr Documented By: Infusion: 04/18/22 09:00 Dose: 0 mls/hr Documented By: Admin: 04/18/22 06:39 Dose: 50 mls/hr Documented By: TORREY Lactated Ringer's (Lr) 1,000 mls @ 100 mls/hr IV .Q10H STA Stop: 04/18/22 16:29 Last Infusion: 04/18/22 14:22 Dose: 0 mls/hr Documented By: Admin: 04/18/22 07:46 Dose: 200 mls/hr Documented By: THONY Doxycycline Hyclate 100 mg/ (Dextrose) 110 mls @ 50 mls/hr IV NOW STA Stop: 04/18/22 09:13 Last Infusion: 04/18/22 14:22 Dose: 0 mls/hr Documented By: Admin: 04/18/22 11:04 Dose: 50 mls/hr Documented By: MANOLO Insulin Glargine (Lantus Per Unit Charge) 5 units SQ DAILY ESTELLE Stop: 05/18/22 08:59 Last Admin: 04/18/22 10:35 Dose: 5 units Documented By: MANOLO Co-signed By: KAYA Lorazepam (Lorazepam 0.5 Mg Tab) 0.25 mg PO NOW STA Stop: 04/18/22 07:22 Last Admin: 04/18/22 07:46 Dose: 0.25 mg Documented By: THONY Metoprolol Tartrate (Metoprolol Tartrate 1 Mg/Ml Vial) 5 mg IV NOW STA Stop: 04/18/22 04:20 Last Admin: 04/18/22 04:29 Dose: 5 mg Documented By: TORREY Critical Care Time I have personally spent greater than 30 minutes of critical care time in the direct management of this patient. This includes bedside care, interpretation of diagnostic studies, and testing, discussion with consultants, patient, and family members, and other required patient management activities. This 30 minutes is in excess of all separately billable procedures. Medical Decision Making Differential Diagnosis Differential diagnosis: Etiologies such as viral syndrome, otitis, pharyngitis, pneumonia, influenza, meningitis, urinary tract infection, septic arthritis, soft tissue infectious process, intra-abdominal process, sepsis, bacteremia, as well as others were entertained. Laboratory Data Result diagrams: 04/18/22 04:07 04/18/22 04:07 Lab Results 04/18/22 04/18/22 04/18/22 Range/Units 04:07 04:07 04:07 WBC 14.40 H (4.8-10.8) K/ul RBC 5.71 (4.63-6.08) M/uL Hgb 17.4 (14.0-18.0) g/dl Hct 47.3 (40.1-51.0) % MCV 82.8 (80.0-100.0) fL MCH 30.5 (25.0-34.0) pg MCHC 36.8 H (32.0-36.0) g/dL RDW Std Deviation 37.6 (36.4-46.3) fL RDW Coeff of Syd 12.7 (11.5-14.5) % Plt Count 192 (130-400) K/uL MPV 9.1 L (9.4-12.4) fL Immature Gran % (Auto) 0.5 % Neut % (Auto) 73.5 % Lymph % (Auto) 16.6 % Owen % (Auto) 8.4 % Eos % (Auto) 0.6 % Baso % (Auto) 0.4 % Neut # (Auto) 10.59 H (1.4-6.5) K/uL Lymph # (Auto) 2.39 (1.2-3.4) K/uL Owen # (Auto) 1.21 H (0.24-0.82) K/uL Eos # (Auto) 0.08 (0-0.50) K/uL Baso # (Auto) 0.06 (0-0.2) K/uL Immature Gran # (Auto) 0.07 H (0.00-0.02) K/uL PT 12.0 (9.0-12.0) Seconds INR 1.1 (0.9-1.1) APTT 36.8 H (21.0-31.0) Seconds PTT Ratio 1.3 VBG pH (7.36-7.41) VBG pCO2 (38-50) mmHg VBG pO2 mmHg VBG HCO3 mmol/L VBG O2 Saturation % VBG Base Excess mEq/L Sodium 135 L (136-145) mmol/L Potassium 4.1 (3.5-5.1) mmol/L Chloride 105 (98-107) mmol/L Carbon Dioxide 18 L (21-32) mmol/L Anion Gap 12 H (3-11) BUN 24 H (6-23) mg/dl Creatinine 0.88 (0.6-1.4) mg/dl Est Cr Clr Drug Dosing 89.3 ml/min Est GFR ( Amer) 108.2 ml/min Est GFR (Non-Af Amer) 93.4 ml/min BUN/Creatinine Ratio 27.3 H (10-20) Glucose 224 H (70-99(Fasting)) mg/dl Lactate (0.4-2.0) mmol/L Calcium 9.7 (8.5-10.1) mg/dl Magnesium 1.6 L (1.7-2.4) mg/dl Total Bilirubin 1.0 (0.2-1.0) mg/dl AST 20 (13-39) U/L ALT 38 (7-52) U/L Alkaline Phosphatase 63 (34-104) U/L Troponin I High Sens 6.3 (0-20) pg/ml Total Protein 6.8 (6.0-8.3) gm/dl Albumin 4.3 (3.4-5.0) gm/dl Globulin 2.5 (2.5-4.0) gm/dl Albumin/Globulin Ratio 1.7 (0.9-2) TSH (0.300-4.500) uIu/ml 04/18/22 04/18/22 04/18/22 Range/Units 04:29 06:23 06:30 WBC (4.8-10.8) K/ul RBC (4.63-6.08) M/uL Hgb (14.0-18.0) g/dl Hct (40.1-51.0) % MCV (80.0-100.0) fL MCH (25.0-34.0) pg MCHC (32.0-36.0) g/dL RDW Std Deviation (36.4-46.3) fL RDW Coeff of Syd (11.5-14.5) % Plt Count (130-400) K/uL MPV (9.4-12.4) fL Immature Gran % (Auto) % Neut % (Auto) % Lymph % (Auto) % Owen % (Auto) % Eos % (Auto) % Baso % (Auto) % Neut # (Auto) (1.4-6.5) K/uL Lymph # (Auto) (1.2-3.4) K/uL Owen # (Auto) (0.24-0.82) K/uL Eos # (Auto) (0-0.50) K/uL Baso # (Auto) (0-0.2) K/uL Immature Gran # (Auto) (0.00-0.02) K/uL PT (9.0-12.0) Seconds INR (0.9-1.1) APTT (21.0-31.0) Seconds PTT Ratio VBG pH (7.36-7.41) VBG pCO2 (38-50) mmHg VBG pO2 mmHg VBG HCO3 mmol/L VBG O2 Saturation % VBG Base Excess mEq/L Sodium (136-145) mmol/L Potassium (3.5-5.1) mmol/L Chloride (98-107) mmol/L Carbon Dioxide (21-32) mmol/L Anion Gap (3-11) BUN (6-23) mg/dl Creatinine (0.6-1.4) mg/dl Est Cr Clr Drug Dosing ml/min Est GFR ( Amer) ml/min Est GFR (Non-Af Amer) ml/min BUN/Creatinine Ratio (10-20) Glucose (70-99(Fasting)) mg/dl Lactate 2.4 H* 1.2 (0.4-2.0) mmol/L Calcium (8.5-10.1) mg/dl Magnesium (1.7-2.4) mg/dl Total Bilirubin (0.2-1.0) mg/dl AST (13-39) U/L ALT (7-52) U/L Alkaline Phosphatase (34-104) U/L Troponin I High Sens (0-20) pg/ml Total Protein (6.0-8.3) gm/dl Albumin (3.4-5.0) gm/dl Globulin (2.5-4.0) gm/dl Albumin/Globulin Ratio (0.9-2) TSH 1.582 (0.300-4.500) uIu/ml 04/18/22 Range/Units 06:30 WBC (4.8-10.8) K/ul RBC (4.63-6.08) M/uL Hgb (14.0-18.0) g/dl Hct (40.1-51.0) % MCV (80.0-100.0) fL MCH (25.0-34.0) pg MCHC (32.0-36.0) g/dL RDW Std Deviation (36.4-46.3) fL RDW Coeff of Syd (11.5-14.5) % Plt Count (130-400) K/uL MPV (9.4-12.4) fL Immature Gran % (Auto) % Neut % (Auto) % Lymph % (Auto) % Owen % (Auto) % Eos % (Auto) % Baso % (Auto) % Neut # (Auto) (1.4-6.5) K/uL Lymph # (Auto) (1.2-3.4) K/uL Owen # (Auto) (0.24-0.82) K/uL Eos # (Auto) (0-0.50) K/uL Baso # (Auto) (0-0.2) K/uL Immature Gran # (Auto) (0.00-0.02) K/uL PT (9.0-12.0) Seconds INR (0.9-1.1) APTT (21.0-31.0) Seconds PTT Ratio VBG pH 7.40 (7.36-7.41) VBG pCO2 34 L (38-50) mmHg VBG pO2 46 mmHg VBG HCO3 21 mmol/L VBG O2 Saturation 79.3 % VBG Base Excess -3.0 mEq/L Sodium (136-145) mmol/L Potassium (3.5-5.1) mmol/L Chloride (98-107) mmol/L Carbon Dioxide (21-32) mmol/L Anion Gap (3-11) BUN (6-23) mg/dl Creatinine (0.6-1.4) mg/dl Est Cr Clr Drug Dosing ml/min Est GFR ( Amer) ml/min Est GFR (Non-Af Amer) ml/min BUN/Creatinine Ratio (10-20) Glucose (70-99(Fasting)) mg/dl Lactate (0.4-2.0) mmol/L Calcium (8.5-10.1) mg/dl Magnesium (1.7-2.4) mg/dl Total Bilirubin (0.2-1.0) mg/dl AST (13-39) U/L ALT (7-52) U/L Alkaline Phosphatase (34-104) U/L Troponin I High Sens (0-20) pg/ml Total Protein (6.0-8.3) gm/dl Albumin (3.4-5.0) gm/dl Globulin (2.5-4.0) gm/dl Albumin/Globulin Ratio (0.9-2) TSH (0.300-4.500) uIu/ml Imaging Data Radiologist's Impression: Chest X-Ray 04/18/22 04:14 XR chest 1V portable CLINICAL HISTORY: Cough, tachycardia. COMPARISON STUDY: Chest radiograph April 28, 2019. FINDINGS: Lung volumes are normal. Lungs are clear. Left lower lung consolidation shown on prior exam of April 28, 2019 has resolved. There is no pneumothorax or pleural effusion. Mild cardiomegaly is unchanged. Mediastinal contours are normal. There is no evidence for pulmonary edema. IMPRESSION: No acute cardiopulmonary findings. ACT 112: Negative or not required by law. Electronically signed by: Sourav Cain M.D. 04/18/2022 6:53 AM ECG Data Attestation: I personally reviewed and interpreted this ECG as follows: Indication: + SOB/dyspnea Additional Comments: Atrial fibrillation with rapid ventricular response @148 T wave abnormality, consider lateral ischemia When compared with ECG of 18-APR-2021 07:19, Atrial fibrillation has replaced Sinus rhythm Vent. rate has increased BY 69 BPM MDM Narrative Physical exam and history were performed. Nursing notes, EMR, and Medication List were personally reviewed. Patient appears to have cough and flulike symptoms bringing him to the ER. On arrival he is quite tachycardic. EKG was performed and he is in A. fib with RVR. IV access was established and labs were obtained. The patient was hydrated with normal saline and given IV Lopressor. Blood cultures and lactic were gathered. Chest x-ray performed. Bio fire was performed. Case was discussed with my attending who remained involved in care decision making. An order was placed for continuous cardiac monitoring. The monitor shows a rate of 84 with with normal sinus rhythm. The patient is having episodic conversion to normal sinus rhythm and return to A. fib with RVR. The patient's blood work is as above and was reviewed. He does have an elevated white blood cell count of 14,000. He does not have significant anemia or gross electrolyte imbalance. INR is 1.1. Lactic is elevated at 2.4. He was given additional fluids as well as IV cefepime. Troponin x1 is negative. Chest x-ray does not show acute process. Glucose is 224. Bio fire did return positive for parainfluenza. Overall the patient does not appear well for discharge. I have strong concern for sepsis, and with his afib with rvr he will need further care through the hospital. The case was discussed with the on-call [facility] hospitalist who agreed to evaluate him here in the ER. Please see their dictation for further patient course, plan, disposition. The chart was completed utilizing [employer] Speech Voice Recognition Software. Grammatical errors, random word insertions, pronoun errors, and incomplete sentences are an occasional consequence of this system due to software limitations, ambient noise, and hardware issues. Any formal questions or concerns about the content, text, or information contained within the body of this dictation should be directly addressed to the provider for clarification. . Impression & Plan Severe sepsis, Atrial fibrillation with rapid ventricular response, Cough, Parainfluenza infection Discharge Plan Visit Data Chief Complaint: Tachycardia Stated Complaint: AFIB/TACHYCARDIA/COUGH ED Provider: Glenny Sidhu ED Midlevel Provider: Leonard Hanley Discharge Problem: Severe sepsis, Atrial fibrillation with rapid ventricular response, Cough, Parainfluenza infection Patient Disposition: Admitted As Inpatient Discharge Instructions Interventions: ED Discharge Assessment Last Done: 04/18/22 08:06
[2022-04-19] MEDS ORDERED: LACTATED RINGER'S 1,000 ML IV ONE (02:04)
[2022-04-19] MEDS ORDERED: METOPROLOL SUCC 50MG EXT REL TAB PO SCH (02:05)
[2022-04-19 02:38] LABS: Basophils # (auto) 0.04 K/uL (0-0.2); Basophils % (auto) 0.4 %; Eosinophils # (auto) 0.08 K/uL (0-0.50); Eosinophils % (auto) 0.8 %; Hematocrit (blood only) 40.5 % (40.1-51.0); Hemoglobin 14.6 g/dl (14.0-18.0); Immature Granulocytes # (auto) 0.06 K/uL (0.00-0.02); Immature Granulocytes % (auto) 0.6 %; Lymphocytes # (auto) 1.94 K/uL (1.2-3.4); Lymphocytes % (auto) 20.3 %; Mean Corpuscular Hemoglobin 30.6 pg (25.0-34.0); Mean Corpuscular Volume 84.9 fL (80.0-100.0); Monocytes # (auto) 0.85 K/uL (0.24-0.82); Monocytes % (auto) 8.9 %; Neutrophils # (auto) 6.58 K/uL (1.4-6.5); Platelet Count 150 K/uL (130-400); RDW Coefficient of Variation 12.8 % (11.5-14.5); RDW Standard Deviation 39.4 fL (36.4-46.3); Red Blood Count 4.77 M/uL (4.63-6.08); White Blood Count 9.55 K/ul (4.8-10.8)
[2022-04-19 03:03] LABS: BUN Creatinine Ratio 19.1 (10-20); Calcium 8.3 mg/dl (8.5-10.1); Creatinine Clr Calc Pharmacy 83.6 ml/min; Est GFR (African American) 101.7 ml/min; Est GFR (Non-African American) 87.8 ml/min; Magnesium 1.7 mg/dl (1.7-2.4); Potassium 3.9 mmol/L (3.5-5.1)
[2022-04-19] MEDS ORDERED: POTASSIUM CHLORIDE CRTAB 20 MEQ TABCR PO STA (03:36)
[2022-04-19] MEDS: MAGNESIUM SULFATE / D5W 1 GM/100 ML BAG IV SCH ×2 (04:01→05:29)
[2022-04-19] MEDS: INSULIN ASPART PER UNIT SC SCH (08:38)
[2022-04-19] MEDS: LANTUS PER UNIT CHARGE SQ SCH (08:39)
[2022-04-19] MEDS: DOXYCYCLINE HYCLATE 100 MG CAP PO SCH (08:51)
[2022-04-19] MEDS: FLECAINIDE ACETATE 100 MG TABLET PO SCH (08:52)
--- NOTE | 2022-04-19 12:20 | Discharge Summary ---
Date of Service April 19, 2022 Admission HPI Per Admitting Provider History obtained from patient, family, and records. Medical history significant for A. fib status post ablation on Xarelto, hypertension, DM2 on oral medications, ongoing tobacco abuse. Last confinement 2010 for new onset A. fib. Patient discharged on Metoprolol and Pradaxa. 2 weeks history of junky cough symptoms and shortness of breath. Chest pain from coughing and palpitations. Denies aspiration. No fluid retention. Sick contacts at home. Patient has not received COVID-19 vaccination. Patient could feel his A. fib at home. Patient given 1 dose of Sudafed at home by . Admits to just taking his flecainide once daily instead of recommended twice daily dosing because he does not feel good taking it. Patient initially hesitant to go to ER despite prodding of his . Patient noted to be in rapid A. fib at the ER. IV Lopressor and cefepime administered at the ER. 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 Admission Exam Per Admitting Provider GENERAL: Slightly uncomfortable, slightly anxious, no respiratory distress SKIN: Normal color, warm HEENT: Marvin palpebral conjunctivae, no ptosis, dry buccal mucosa NECK : Supple, no tenderness CHEST : Decreased breath sounds, occasional expiratory wheezes, no tenderness HEART : Irregular, tachycardic, no obvious murmurs ABDOMEN: Some distention, nontender EXTREMITIES : No LE swelling/tenderness, no other conspicuous deformities noted NEUROLOGIC : Coherent, no facial asymmetry, no other gross focality Principal Diagnosis Complicated bronchitis Parainfluenza virus type I infection Afib w/ RVR Discharge Exam GENERAL: Alert and oriented x3. NAD, on RA. HEENT: No pallor, no icterus. Pupils equal, round and reactive to light. Oral mucosa moist. NECK: No JVD, no neck masses. HEART: S1 and S2 heard. regular rate and rhythm. No murmur, no gallop. RESPIRATORY SYSTEM: Normal AP diameter. No accessory muscle use. No wheezing, no crackles. ABDOMEN: Soft, bowel sounds present, nontender, no distention. CENTRAL NERVOUS SYSTEM: No facial droop. Speech is clear. Obeys simple commands. Moves extremities. EXTREMITIES: No edema, no erythema seen. Discharge Data Allergies Allergy/AdvReac Type Severity Reaction Status Date / Time No Known Allergies Allergy Mild Verified 04/18/22 06:17 Consultations 04/18/22 06:11 ED Decision to Admit Stat Hospital Course (1) Severe sepsis: Plan 61-year-old male with PMH of A. fib status post ablation on Xarelto, HTN, DM2 on oral meds, ongoing tobacco abuse presented 04/18 with complaint of 2-week of history of junky cough symptoms and shortness of breath with productive yellowish/greenish sputum and associated with chest pain from coughing. Patient denies aspiration. Patient has not received COVID-19 vaccination. He takes his flecainide once daily instead of recommended twice daily dosing because he does not feel good taking it. Patient was noted to be in A. fib RVR at the ED. He was managed for the following: Severe sepsis POA: At presentation --> WBC 14.4K, lactic acid 2.4, AL and RR elevated, complicated bronchitis. Likely complicated bronchitis Parainfluenza virus type I infection: Droplet isolation Patient presents with increasing cough associated with greenish-yellow sputum [see above] Admitting CXR with no acute findings Admitting blood culture pending, no growth so far. Continue with doxycycline 04/18, complete course on DC. Patient reports improving cough, decreasing sputum. Patient on room air, reports feeling better. Would like to go home. Lactic acidosis normalized. A. fib with RVR: Secondary to acute illness. Medication noncompliance and anxiety contributory. Continue home meds, heart rate controlled. Patient to follow-up with his cardio and EP as outpatient-Pt made aware. ECHO reviewed. Patient known to be under [facility] cardiology. Pt to get EKG in a week time and f/u with [facility] as discussed at bedside. Other chronic medical conditions: HTN, DM2 [A1c of 6.7 last August 2021], ongoing tobacco abuse -->> continue with/resume home meds as and when able. SSI while inpatient. DVT prophylaxis: Patient on Xarelto Full code Pt is being discharged to home w/ following instructions at the point of discharge: Follow-up with your primary care physician within a week time and likely you will need CBC/CMP/EKG. Follow-up with your cardiology in 1 to 2 weeks time, maintain compliance with your heart medications. You will need EKG in 1 week time to monitor your QTC, you can call either your primary care office or cardiology office to set up this test. You will be discharged on antibiotic to complete the course. Take your medications as prescribed. Home Health Attestation I certify that this patient is under my care and that I, or a physicians butcher's assistant working with me, had a face to-face encounter that meets the home health tgar-ty-jjoi encounter requirements with this patient. The encounter with the patient was in whole, or in part, for the following medical condition, which is the primary reason for home health care (list medical condition): I certify that, based on my findings, the following services are medically necessary home health services: My clinical findings support the need for the above services because: Further, I certify that my clinical findings support that this patient is homebound (i.e. absences from home require considerable and taxing effort and are for medical reasons or baptism services or infrequently or of short duration when for other reasons) because: Certification for Home Health Services: Based on the above findings, I certify that this patient is confined to the home and needs intermittent prison care, physical therapy and/or speech therapy or continues to need occupational therapy. The patient is under my care, and I have initiated the establishment of the plan of care. This patient will be followed by a physician who will periodically review the plan of care. Total Time Total Time Spent Total Time Spent (In Minutes): 40 Discharge Plan Discharge Items Patient Disposition: Home - Self-Care Reason For Visit: RAPID AF,SEPSIS Discharge Diagnosis: Complicated bronchitis Parainfluenza virus type I infection Afib w/ RVR Activity: Resume your previous activity Non-emergency contact: Primary Care Provider Call non-emergency contact if: you have any medication questions, your symptoms worsen and your temperature is above 101 Follow-up/Referrals: Christ Turpin MD [Primary Care Provider] - Diet: Carb Consistent or DM2 Addtl Attending Provider Instructions: Follow-up with your primary care physician within a week time and likely you will need CBC/CMP/EKG. Follow-up with your cardiology in 1 to 2 weeks time, maintain compliance with your heart medications. You will need EKG in 1 week time to monitor your QTC, you can call either your primary care office or cardiology office to set up this test. You will be discharged on antibiotic to complete the course. Take your medications as prescribed. Pending Studies at Discharge: Yes (admitting blood culture final results. ) Stand-Alone Forms: My [facility], Smoking Cessation Medications and DC Order Prescriptions: New doxycycline hyclate 100 mg Capsule 100 mg PO BID 6 Days Qty: 12 0RF Continued flecainide 100 mg tablet 100 mg PO Q12H Qty: 180 3RF metoprolol succinate 100 mg tablet extended release 24 hr 50 mg PO BID Qty: 90 3RF Xarelto 20 mg tablet 20 mg PO QDD glipizide 10 mg tablet 10 mg PO BID Trulicity 0.75 mg/0.5 mL Pen Injector 0.75 mg SUBCUT WK Label Comments: TAKES ON TUESDAYS Discharge Orders: Discharge Order (Routine); Ordered 04/19/22 Ordered By: Mateo Whitaker Admission Data Admit Date/Time: 04/18/22 07:19 Attending Provider: Mateo Whitaker Admit Provider: Sawyer Lyman Primary Care Provider: Christ Turpin Other Providers: Sawyer Lyman
--- NOTE | 2022-04-19 21:55 | Electrocardiogram Report ---
Test Reason : Blood Pressure : / mmHG Vent. Rate : 148 BPM Atrial Rate : 147 BPM P-R Int : 000 ms QRS Dur : 078 ms QT Int : 274 ms P-R-T Axes : 000 040 116 degrees QTc Int : 430 ms Poor data quality, interpretation may be adversely affected Atrial fibrillation with rapid ventricular response Septal infarct , age undetermined T wave abnormality, consider lateral ischemia Abnormal ECG When compared with ECG of 18-APR-2021 07:19, Atrial fibrillation has replaced Sinus rhythm Vent. rate has increased BY 69 BPM Septal infarct is now Present T wave inversion now evident in Lateral leads Confirmed by Ant Tran ([id number]) on 04/19/2022 9:54:52 PM Referred By: REFERRED SELF Confirmed By:Ant Tran
--- NOTE | 2022-04-20 05:20 | Electrocardiogram Report ---
Test Reason : Blood Pressure : / mmHG Vent. Rate : 080 BPM Atrial Rate : 080 BPM P-R Int : 162 ms QRS Dur : 094 ms QT Int : 392 ms P-R-T Axes : 056 056 090 degrees QTc Int : 452 ms Normal sinus rhythm Nonspecific T wave abnormality Abnormal ECG When compared with ECG of 18-APR-2022 04:03, Sinus rhythm has replaced Atrial fibrillation Vent. rate has decreased BY 68 BPM Criteria for Septal infarct are no longer Present Confirmed by Ant Tran ([id number]) on 04/20/2022 5:20:18 AM Referred By: REFERRED SELF Confirmed By:Ant Tran
== END 2022-04-19 14:23 | disposition home or self-care (01) | DRG 872 ==
LOC: ED 03:53 → INTOOBSV 07:19 → 4W 07:19

== ENCOUNTER 2024-08-11 16:05 | Inpatient (IN) ==
[2024-08-11] MEDS: METOPROLOL TARTRATE 1 MG/ML VIAL IV STA ×2 (16:23→18:38)
--- NOTE | 2024-08-11 16:32 | Emergency Department Note ---
Impression & Plan Atrial fibrillation with rapid ventricular response, Elevated lipase ED Provider Note HISTORY OF PRESENT ILLNESS: Patient is a 64-year-old male presenting with palpitations. Patient reports that yesterday evening at 5 PM he started feeling like his heart was racing and his heart was skipping beats. He has a history of paroxysmal A-fib and is on Xarelto, metoprolol and flecainide. He states that he thought that his tachycardia and palpitations would improve, but they continued throughout the day today. He was recently started on cephalexin twice daily for an infected right middle finger. Patient reports he got a splinter in his finger about 7 days ago and was seen at his primary doctor's office 2 days ago and started on Keflex. He is unsure if this is playing a factor in his A-fib with RVR. Denies any excessive caffeine or recreational drug use. Denies any abdominal pain, nausea or vomiting. He reports he feels slightly lightheaded with his palpitations. He does complain of a diffuse pressure sensation in his chest. He denies any missed doses of his Xarelto. Denies any DVT or PE history. Denies any history of cardiac stents. ROS: as above PHYSICAL EXAM: Constitutional: Patient appears in no acute distress. HENT: Head: Normocephalic and atraumatic. Eyes: EOMI, PERRL Mouth/Throat: Mucous membranes moist. Neck: Trachea midline. Neck supple. Cardiovascular: Tachycardic with irregularly irregular rhythm. No murmurs, rubs or gallops. Intact distal pulses. Pulmonary/Chest: No respiratory distress. Breath sounds clear and equal bilaterally. No wheezes or rales. Abdominal: Abdomen soft, no tenderness, rebound or guarding. Musculoskeletal: - RUE: Patient is noted to have some mild swelling to the lateral nailbed of the middle finger. No discharge expressed from the area. No tenderness to palpation to the pad of the finger. No overt erythema to the finger or significant swelling noted. Skin: Warm and dry. No rash, erythema, pallor or cyanosis Psychiatric: Appropriate mood and affect for situation. Neurological: Alert and keenly responsive. CN II-XII grossly intact, moving all extremities equally and fully. MDM: - Vitals signs showed tachycardia - History obtained via patient. History as above. - Chronic conditions affecting care: Afib; DM-2 - Differential diagnoses include, but are not limited to: dysrhythmia; electrolyte abnormality; ACS; pneumonia; viral syndrome - Order placed for continuous cardiac monitoring. At this time, monitor showed rate of 120 bpm with irregular rhythm, per my interpretation. - External medical records reviewed. Cardiology office visit note dated 11/18/2021 was reviewed. Patient follows in the clinic for paroxysmal A-fib. Echocardiogram dated 04/18/2022 was reviewed. Patient has an EF of 55 to 60%. - EKG image interpreted by myself showed atrial fibrillation. Rate tachycardic at 122 bpm. QT 308. No acute ischemic changes. - Laboratory workup interpreted by myself showed normal WBC; normal PT/INR; stable electrolytes; hyperglycemia (glucose 251) with normal anion gap; normal TSH; normal troponin; elevated lipase (179) - CXR image reviewed by myself is negative for pneumonia, per my interpretation. - Patient initially given 5 mg IV lopressor for rate control. However, his heart rate remains in the 120 to 130 bpm range. - Discussed case with [facility] radio time buyer on-call, Dr. Rush, at 17:40. He recommended trying more IV metoprolol. Also recommended a load of digoxin 0.25 mg now and can be repeated as necessary. - Patient given an additional 5 mg IV lopressor and 0.25 mg PO digoxin - On reassessment, heart rate still in the 110 to 130 bpm range. - Discussion was had with case assembler about patient's case and need for admission - Hospitalist consulted for admission - Patient admitted to [facility] service for further evaluation and management. I have personally spent 46 minutes of critical care time in the direct management of this patient. This includes bedside care, interpretation of diagnostic studies, and testing, discussion with consultants, patient, and family members, and other required patient management activities. This 46 minutes is in excess of all separately billable procedures. ASSESSMENT AND PLAN: Diagnosis: Atrial fibrillation with rapid ventricular rate; elevated lipase Plan: Admit Past Med/Surg History Problem List (Updated 08/11/24 @ 18:48 by Manuela Ball MD) Elevated lipase (Acute) Atrial fibrillation with rapid ventricular response (Acute) Parainfluenza infection (Acute) Cough (Acute) Atrial fibrillation with rapid ventricular response (Acute) Severe sepsis (Acute) Intermittent lightheadedness Encounter for pre-operative examination Cardiovascular event risk Anticoagulant long-term use Pre-op evaluation Afib REASON FOR XARELTO Medical History Afib REASON FOR XARELTO Diabetes mellitus, type 2 History of COVID-19 05/2020 (CONGESTION/FATIGUE>NO CURRENT PROBLEMS) History of depression Surgical History H/O cardiac radiofrequency ablation X 3 ([facility]>LAST 2 YEARS AGO) H/O elbow surgery RT ULNAR NERVE REPAIR H/O hernia repair History of colonoscopy History of tooth extraction Family History Father Family history of diabetes mellitus Other No family history of adverse response to anesthesia No pertinent family history in first degree relatives Social History Smoking Status: Light tobacco smoker Tobacco Type: Cigars Cigarettes Per Day: A COUPLE TIMES A WEEK (ADVISED); Second Hand Exposure: Yes; Do You Dip or Chew Tobacco: No; Hx Alcohol Use: No Hx Substance Use: Yes Last Used Substance: Unknown Last Used Substance Other:: LAST USED "DAYS AGO" ADVISED Preferred Language: Panamanian Communication Ability: Effective Food Trades Assistants Required: No Beliefs That Will Affect Care: None marital status: Current Living Situation: Spouse current occupational status: employed Feels Safe at Home: Yes Assistive Devices: None Allergies Allergies Allergy/AdvReac Type Severity Reaction Status Date / Time No Known Allergies Allergy Mild Verified 04/18/22 06:17 Home Meds Home Medications Medication Instructions Recorded Confirmed cephalexin 500 mg capsule 500 mg PO TID 08/11/24 08/11/24 dulaglutide 4.5 mg/0.5 mL 4.5 mg subcut WK 08/11/24 08/11/24 subcutaneous pen injector (Trulicity) flecainide 100 mg tablet 100 mg PO BID 08/11/24 08/11/24 rivaroxaban 20 mg tablet (Xarelto) 20 mg PO PM 08/11/24 08/11/24 tamsulosin 0.4 mg capsule 0.4 mg PO QAM 08/11/24 08/11/24 Previous Rx's Medication Instructions Recorded metoprolol succinate 100 mg 50 mg (1/2 x 100 mg) PO BID #90 02/03/22 tablet,extended release 24 hr tabs Results & Data (ED) Vital Signs Vital Signs - 24 hr 08/11/24 16:10 08/11/24 16:17 08/11/24 16:23 Temperature 36.7 C Temperature Source Temporal Artery Scan Pulse Rate 125 H 125 H 127 H Pulse Rate from SpO2 Sensor Respiratory Rate 17 Respiratory Effort / Characteristics Non-Labored Spontaneous Respiratory Depth Normal Blood Pressure 121/74 Blood Pressure Mean 89 Pulse Oximetry 99 95 Oxygen Delivery Method Room Air Room Air Sepsis Recent Fever Within 48 Hours No Sepsis New/Unexplained Change in Mental Status N/A Sepsis Action Taken by Nursing No Action Required 08/11/24 16:28 08/11/24 16:31 08/11/24 17:00 Temperature Temperature Source Pulse Rate 120 H 130 H 129 H Pulse Rate from SpO2 Sensor 127 H Respiratory Rate 22 24 Respiratory Effort / Characteristics Respiratory Depth Blood Pressure 115/75 100/80 Blood Pressure Mean 85 86 Pulse Oximetry 97 92 Oxygen Delivery Method Sepsis Recent Fever Within 48 Hours Sepsis New/Unexplained Change in Mental Status Sepsis Action Taken by Nursing 08/11/24 17:30 08/11/24 18:29 08/11/24 18:38 Temperature Temperature Source Pulse Rate 130 H 118 H 122 H Pulse Rate from SpO2 Sensor Respiratory Rate 22 Respiratory Effort / Characteristics Respiratory Depth Blood Pressure 126/74 104/81 Blood Pressure Mean 97 Pulse Oximetry 94 Oxygen Delivery Method Sepsis Recent Fever Within 48 Hours Sepsis New/Unexplained Change in Mental Status Sepsis Action Taken by Nursing Laboratory Data 08/11/24 16:17 08/11/24 16:17 Lab Results 08/11/24 Range/Units 16:17 WBC 10.42 (4.8-10.8) K/ul RBC 6.24 H (4.70-6.10) M/uL Hgb 18.6 H (14.0-18.0) g/dl Hct 50.9 (42.0-52.0) % MCV 81.6 (80.0-100.0) fL MCH 29.8 (25.0-34.0) pg MCHC 36.5 H (32.0-36.0) g/dL RDW Std Deviation 37.9 (36.4-46.3) fL RDW Coeff of Syd 13.0 (11.5-14.5) % Plt Count 199 (130-400) K/uL MPV 9.1 L (9.4-12.4) fL Immature Gran % (Auto) 0.6 % Neut % (Auto) 62.6 % Lymph % (Auto) 27.4 % [place] % (Auto) 8.0 % Eos % (Auto) 0.8 % Baso % (Auto) 0.6 % Neut # (Auto) 6.53 H (1.40-6.50) K/uL Lymph # (Auto) 2.86 (1.20-3.40) K/uL [place] # (Auto) 0.83 H (0.11-0.59) K/uL Eos # (Auto) 0.08 (0.00-0.50) K/uL Baso # (Auto) 0.06 (0.00-0.20) K/uL Immature Gran # (Auto) 0.06 (0.01-0.20) K/uL PT 11.3 (9.0-12.0) Seconds INR 1.0 (0.9-1.1) Sodium 137 (136-145) mmol/L Potassium 4.7 (3.5-5.1) mmol/L Chloride 104 (98-107) mmol/L Carbon Dioxide 22 (21-32) mmol/L Anion Gap 11 (3-11) BUN 23 (6-23) mg/dl Creatinine 1.04 (0.6-1.4) mg/dl Est Cr Clr Drug Dosing 75.1 ml/min eGFR 80.68 BUN/Creatinine Ratio 22.1 H (10-20) Glucose 251 H (70-99(Fasting)) mg/dl Calcium 10.1 (8.6-10.3) mg/dl Magnesium 1.7 (1.7-2.4) mg/dl Total Bilirubin 1.1 H (0.2-1.0) mg/dl AST 22 (13-39) U/L ALT 36 (7-52) U/L Alkaline Phosphatase 66 (34-104) U/L Troponin I High Sens 3.5 (0-20) pg/ml Total Protein 6.8 (6.0-8.3) gm/dl Albumin 4.6 (3.4-5.0) gm/dl Globulin 2.2 L (2.5-4.0) gm/dl Albumin/Globulin Ratio 2.1 H (0.9-2) Lipase 179 H (11-82) U/L TSH 4.425 (0.300-4.500) uIu/ml Administered Medications Discontinued Medications Digoxin (Digoxin 0.125 Mg Tab) 0.25 mg PO NOW ONE Stop: 08/11/24 17:51 Last Admin: 08/11/24 18:29 Dose: 0.25 mg Documented By: NRB Metoprolol Tartrate (Metoprolol Tartrate 1 Mg/Ml Vial) 5 mg IV NOW STA Stop: 08/11/24 16:19 Last Admin: 08/11/24 16:23 Dose: 5 mg Documented By: NRB Metoprolol Tartrate (Metoprolol Tartrate 1 Mg/Ml Vial) 5 mg IV NOW STA Stop: 08/11/24 17:51 Last Admin: 08/11/24 18:38 Dose: 5 mg Documented By: NRB Imaging Data Radiologist's Impression: Chest X-Ray 08/11/24 16:17 EXAM: Radiograph of the Chest 1 View INDICATION: Atrial fibrillation TECHNIQUE: Frontal view of the chest. COMPARISON: 04/18/2022 FINDINGS: Lungs and pleural spaces: No consolidation or pulmonary edema. No pleural effusion or pneumothorax. Heart: Stable mild enlargement of the cardiac shadow. Mediastinum: Normal contour. Bones/joints: No fracture, erosion or dislocation. Soft tissues: No abnormality noted. No radiopaque foreign body noted. Upper abdomen: No abnormality noted. IMPRESSION: No acute cardiopulmonary disease. ACT 112: N/A Electronically signed by Jade Escalante 08-11-2024 5:40 PM Discharge Plan Visit Data Chief Complaint: Arrhythmia/Palpitations ED Provider: Manuela Ball Discharge Problem: Atrial fibrillation with rapid ventricular response, Elevated lipase Forms Stand Alone Forms: My [employer] Prescriptions Prescriptions: No Action metoprolol succinate 100 mg tablet extended release 24 hr 50 mg PO BID Qty: 90 3RF tamsulosin 0.4 mg Capsule 0.4 mg PO QAM cephalexin 500 mg capsule 500 mg PO TID Trulicity 4.5 mg/0.5 mL pen injector 4.5 mg SUBCUT WK flecainide 100 mg tablet 100 mg PO BID Xarelto 20 mg tablet 20 mg PO PM Referrals Referrals: Christ Turpin MD [Outside Practitioners] -
[2024-08-11 16:52] LABS: Basophils # (auto) 0.06 K/uL (0.00-0.20); Basophils % (auto) 0.6 %; Eosinophils # (auto) 0.08 K/uL (0.00-0.50); Eosinophils % (auto) 0.8 %; Hematocrit (blood only) 50.9 % (42.0-52.0); Hemoglobin 18.6 g/dl (14.0-18.0); Immature Granulocytes # (auto) 0.06 K/uL (0.01-0.20); Immature Granulocytes % (auto) 0.6 %; Lymphocytes # (auto) 2.86 K/uL (1.20-3.40); Lymphocytes % (auto) 27.4 %; Mean Corpuscular Hemoglobin 29.8 pg (25.0-34.0); Mean Corpuscular Hgb Conc 36.5 g/dL (32.0-36.0); Mean Corpuscular Volume 81.6 fL (80.0-100.0); Mean Platelet Volume 9.1 fL (9.4-12.4); Monocytes # (auto) 0.83 K/uL (0.11-0.59); Neutrophils # (auto) 6.53 K/uL (1.40-6.50); Neutrophils % (auto) 62.6 %; Platelet Count 199 K/uL (130-400); RDW Standard Deviation 37.9 fL (36.4-46.3); Red Blood Count 6.24 M/uL (4.70-6.10); White Blood Count 10.42 K/ul (4.8-10.8)
[2024-08-11 17:15] LABS: Albumin Globulin Ratio 2.1 (0.9-2); Albumin Level 4.6 gm/dl (3.4-5.0); BUN Creatinine Ratio 22.1 (10-20); Bilirubin,Total 1.1 mg/dl (0.2-1.0); Calcium 10.1 mg/dl (8.6-10.3); Creatinine Clr Calc Pharmacy 75.1 ml/min; Globulin 2.2 gm/dl (2.5-4.0); Magnesium 1.7 mg/dl (1.7-2.4); Potassium 4.7 mmol/L (3.5-5.1); Total Protein 6.8 gm/dl (6.0-8.3)
[2024-08-11 17:19] LABS: Troponin I High Sensitivity 3.5 pg/ml (0-20)
[2024-08-11 17:28] LABS: Thyroid Stimulating Hormone 4.425 uIu/ml (0.300-4.500)
--- NOTE | 2024-08-11 17:41 | XRay Report ---
EXAM: Radiograph of the Chest 1 View INDICATION: Atrial fibrillation TECHNIQUE: Frontal view of the chest. COMPARISON: 04/18/2022 FINDINGS: Lungs and pleural spaces: No consolidation or pulmonary edema. No pleural effusion or pneumothorax. Heart: Stable mild enlargement of the cardiac shadow. Mediastinum: Normal contour. Bones/joints: No fracture, erosion or dislocation. Soft tissues: No abnormality noted. No radiopaque foreign body noted. Upper abdomen: No abnormality noted. IMPRESSION: No acute cardiopulmonary disease. ACT 112: N/A Electronically signed by Jade Escalante 08-11-2024 5:40 PM
[2024-08-11 17:53] LABS: Prothrombin Time 11.3 Seconds (9.0-12.0)
[2024-08-11] MEDS: DIGOXIN 0.125 MG TAB PO ONE (18:29)
[2024-08-11] MEDS: DIGOXIN 125 MCG in SYRINGE 9.5 ML IV STA (20:35)
--- NOTE | 2024-08-11 21:32 | History & Physical Report ---
Date of Service August 11, 2024 Assessment & Plan (1) Atrial fibrillation with rapid ventricular response: Plan: 64-year-old male with past medical history significant for type 2 diabetes, diabetic nephropathy, atrial fibrillation, hypertension, BPH, tobacco use, history of cardiac radiofrequency ablation presents with rapid A-fib. Patient says since yesterday evening he noticed palpitations. It was constant and not abating so decided come to the ER today. Has some mild chest heaviness. No shortness of breath.. When standing up feeling dizzy. No headache. Vision is okay. No runny nose or sore throat or cough. Appetite is okay. Had some heartburn symptoms that resolved now. Normal bowel and bladder movements. Resting comfortably. Afebrile. Rapid A-fib/a flutter Received IV Lopressor and p.o. digoxin in the ER ER discussed with cardiology and recommended IV Lopressor and digoxin for now Continue home metoprolol and flecainide Xarelto Close monitoring on telemetry Follow repeat labs Cardiac consult in a.m. for further recommendations Type 2 diabetes On trulicity which will be held Sliding scale Will monitor Recent right hand finger infection from splinter On Keflex started as outpatient last Improving BPH On Flomax Hypertension On metoprolol succinate Will monitor Mild elevation of lipase Mostly nonspecific Will monitor DVT prophylaxis On Xarelto Disposition Telemetry Full code. History of Present Illness Chief Complaint: Rapid A-fib Primary Care Provider: Augusto Rico MD 64-year-old male with past medical history significant for type 2 diabetes, diabetic nephropathy, atrial fibrillation, hypertension, BPH, tobacco use, history of cardiac radiofrequency ablation presents with rapid A-fib. Patient says since yesterday evening he noticed palpitations. It was constant and not abating so decided come to the ER today. Has some mild chest heaviness. No shortness of breath.. When standing up feeling dizzy. No headache. Vision is okay. No runny nose or sore throat or cough. Appetite is okay. Had some heartburn symptoms that resolved now. Normal bowel and bladder movements. Resting comfortably. Afebrile. Past medical history. As mentioned above Past surgical history. Colonoscopy. Right arm ulnar nerve repair. Repair of inguinal hernia. Social history. . Smokes cigar. Alcohol rarely. No drug use. Family history. Father had [place]. Paternal grandfather had a heart disorder. Allergies Allergy/AdvReac Type Severity Reaction Status Date / Time No Known Allergies Allergy Mild Verified 04/18/22 06:17 Home Medications Medication Instructions Recorded Confirmed Type metoprolol succinate 100 mg 50 mg (1/2 x 100 mg) PO BID #90 02/03/22 08/11/24 Rx tablet,extended release 24 hr tabs cephalexin 500 mg capsule 500 mg PO TID 08/11/24 08/11/24 History dulaglutide 4.5 mg/0.5 mL 4.5 mg subcut WK 08/11/24 08/11/24 History subcutaneous pen injector (Trulicity) flecainide 100 mg tablet 100 mg PO BID 08/11/24 08/11/24 History rivaroxaban 20 mg tablet (Xarelto) 20 mg PO PM 08/11/24 08/11/24 History tamsulosin 0.4 mg capsule 0.4 mg PO QAM 08/11/24 08/11/24 History Past Med/Surg History Problem List (Updated 08/11/24 @ 18:48 by Manuela Ball MD) Elevated lipase (Acute) Atrial fibrillation with rapid ventricular response (Acute) Parainfluenza infection (Acute) Cough (Acute) Atrial fibrillation with rapid ventricular response (Acute) Severe sepsis (Acute) Intermittent lightheadedness Encounter for pre-operative examination Cardiovascular event risk Anticoagulant long-term use Pre-op evaluation Afib REASON FOR XARELTO Medical History Afib REASON FOR XARELTO Diabetes mellitus, type 2 History of COVID-19 05/2020 (CONGESTION/FATIGUE>NO CURRENT PROBLEMS) History of depression Surgical History H/O cardiac radiofrequency ablation X 3 ([place] [facility]LAST 2 YEARS AGO) H/O elbow surgery RT ULNAR NERVE REPAIR H/O hernia repair History of colonoscopy History of tooth extraction Family History Father Family history of diabetes mellitus Other No family history of adverse response to anesthesia No pertinent family history in first degree relatives Social History Smoking Status: Light tobacco smoker Tobacco Type: Cigars Cigarettes Per Day: A COUPLE TIMES A WEEK (ADVISED); Second Hand Exposure: No; Do You Dip or Chew Tobacco: No; Tobacco Cessation Education Requested by Patient: No Hx Alcohol Use: Yes Alcohol type: beer Hx Substance Use: No Preferred Language: Maltese Communication Ability: Effective Enforcement Manager Required: No Beliefs That Will Affect Care: None marital status: Current Living Situation: Spouse current occupational status: employed Other Information That Helps Us Care for You: No Feels Safe at Home: Yes Safety Concerns: Feels Safe At This Time Assistive Devices: None Review of Systems Review of Systems: All systems reviewed & are unremarkable except as noted in HPI & below Physical Exam Physical Exam: General- Not in distress. Head- atraumatic Eyes- PERRL. ENT- oropharynx clear Neck- supple, no JVD. Lungs- clear to auscultation no wheezing or crackles. Heart- irregular rhythm;tachycardia, no murmur, no gallop. Abdomen- normal bowel sounds, soft, nontender, no distension. Extremities- no pretibial edema, no erythema seen Neuro- alert, oriented PERRL, EOMI; no facial palsy; no dysarthria; moves extremities Results & Data Results & Data Vital Signs (Past 12 Hours) Vital Signs Temp Pulse Resp BP Pulse Ox O2 Del Method 08/11/24 18:38 122 H 104/81 08/11/24 18:29 118 H 08/11/24 17:30 130 H 22 126/74 94 08/11/24 17:00 129 H 24 100/80 92 08/11/24 16:31 130 H 22 115/75 97 08/11/24 16:28 120 H 08/11/24 16:23 127 H 08/11/24 16:17 125 H 95 Room Air 08/11/24 16:10 36.7 C 125 H 17 121/74 99 Room Air Diagnostic Findings Laboratory Results WBC 10.42 K/ul (4.8-10.8) 08/11/24 16:17 RBC 6.24 M/uL (4.70-6.10) H 08/11/24 16:17 Hgb 18.6 g/dl (14.0-18.0) H 08/11/24 16:17 Hct 50.9 % (42.0-52.0) 08/11/24 16:17 MCV 81.6 fL (80.0-100.0) 08/11/24 16:17 MCH 29.8 pg (25.0-34.0) 08/11/24 16:17 MCHC 36.5 g/dL (32.0-36.0) H 08/11/24 16:17 RDW Std Deviation 37.9 fL (36.4-46.3) 08/11/24 16:17 RDW Coeff of Syd 13.0 % (11.5-14.5) 08/11/24 16:17 Plt Count 199 K/uL (130-400) 08/11/24 16:17 MPV 9.1 fL (9.4-12.4) L 08/11/24 16:17 Immature Gran % (Auto) 0.6 % 08/11/24 16:17 Neut % (Auto) 62.6 % 08/11/24 16:17 Lymph % (Auto) 27.4 % 08/11/24 16:17 Sampson % (Auto) 8.0 % 08/11/24 16:17 Eos % (Auto) 0.8 % 08/11/24 16:17 Baso % (Auto) 0.6 % 08/11/24 16:17 Neut # (Auto) 6.53 K/uL (1.40-6.50) H 08/11/24 16:17 Lymph # (Auto) 2.86 K/uL (1.20-3.40) 08/11/24 16:17 Sampson # (Auto) 0.83 K/uL (0.11-0.59) H 08/11/24 16:17 Eos # (Auto) 0.08 K/uL (0.00-0.50) 08/11/24 16:17 Baso # (Auto) 0.06 K/uL (0.00-0.20) 08/11/24 16:17 Immature Gran # (Auto) 0.06 K/uL (0.01-0.20) 08/11/24 16:17 PT 11.3 Seconds (9.0-12.0) 08/11/24 16:17 INR 1.0 (0.9-1.1) 08/11/24 16:17 Sodium 137 mmol/L (136-145) 08/11/24 16:17 Potassium 4.7 mmol/L (3.5-5.1) 08/11/24 16:17 Chloride 104 mmol/L (98-107) 08/11/24 16:17 Carbon Dioxide 22 mmol/L (21-32) 08/11/24 16:17 Anion Gap 11 (3-11) 08/11/24 16:17 BUN 23 mg/dl (6-23) 08/11/24 16:17 Creatinine 1.04 mg/dl (0.6-1.4) 08/11/24 16:17 Est Cr Clr Drug Dosing 75.1 ml/min 08/11/24 16:17 eGFR 80.68 08/11/24 16:17 BUN/Creatinine Ratio 22.1 (10-20) H 08/11/24 16:17 Glucose 251 mg/dl (70-99(Fasting)) H 08/11/24 16:17 Calcium 10.1 mg/dl (8.6-10.3) 08/11/24 16:17 Magnesium 1.7 mg/dl (1.7-2.4) 08/11/24 16:17 Total Bilirubin 1.1 mg/dl (0.2-1.0) H 08/11/24 16:17 AST 22 U/L (13-39) 08/11/24 16:17 ALT 36 U/L (7-52) 08/11/24 16:17 Alkaline Phosphatase 66 U/L (34-104) 08/11/24 16:17 Troponin I High Sens 3.5 pg/ml (0-20) 08/11/24 16:17 Total Protein 6.8 gm/dl (6.0-8.3) 08/11/24 16:17 Albumin 4.6 gm/dl (3.4-5.0) 08/11/24 16:17 Globulin 2.2 gm/dl (2.5-4.0) L 08/11/24 16:17 Albumin/Globulin Ratio 2.1 (0.9-2) H 08/11/24 16:17 Lipase 179 U/L (11-82) H 08/11/24 16:17 TSH 4.425 uIu/ml (0.300-4.500) 08/11/24 16:17 Impressions Chest X-Ray 08/11/24 16:17 EXAM: Radiograph of the Chest 1 View INDICATION: Atrial fibrillation TECHNIQUE: Frontal view of the chest. COMPARISON: 04/18/2022 FINDINGS: Lungs and pleural spaces: No consolidation or pulmonary edema. No pleural effusion or pneumothorax. Heart: Stable mild enlargement of the cardiac shadow. Mediastinum: Normal contour. Bones/joints: No fracture, erosion or dislocation. Soft tissues: No abnormality noted. No radiopaque foreign body noted. Upper abdomen: No abnormality noted. IMPRESSION: No acute cardiopulmonary disease. ACT 112: N/A Electronically signed by Jade Escalante 08-11-2024 5:40 PM ECG Additional Comments: EKG. Atrial flutter with variable AV block with rate of 122. QTc 438 Code Status & VTE Plan VTE Prophylaxis Plan VTE Prophylaxis will be ordered: Yes
[2024-08-11] MEDS ORDERED: POLYETHYLENE (MIRALAX) 17 GM PACK PO PRN (21:54)
[2024-08-11] MEDS ORDERED: NITROGLYCERIN SL 0.4 MG/TAB TAB SL PRN (21:54)
[2024-08-11] MEDS ORDERED: GLUCOSE 40% GEL 15 GM TUBE PO PRN (21:54)
[2024-08-11] MEDS ORDERED: DEXTROSE 50% 50 ML SYRINGE IV PRN (21:54)
[2024-08-11] MEDS ORDERED: ACETAMINOPHEN 325 MG TAB PO PRN (21:54)
[2024-08-11] MEDS ORDERED: CARBOHYDRATES FOR HYPOGLYCEMIA PO PRN (21:54)
[2024-08-11] MEDS ORDERED: GLUCOSE 10 TAB/TUBE PO PRN (21:54)
[2024-08-11] MEDS ORDERED: GLUCAGON FOR INJ 1 MG VIAL SQ PRN (21:54)
[2024-08-11] MEDS: FLECAINIDE ACETATE 100 MG TABLET PO SCH (23:16)
[2024-08-11] MEDS: cephALEXin 500 MG CAP PO SCH (23:17)
[2024-08-11] MEDS: RIVAROXABAN 20 MG TAB PO SCH (23:17)
[2024-08-11] MEDS: METOPROLOL SUCC 50MG EXT REL TAB PO SCH (23:17)
[2024-08-11] MEDS: INSULIN ASPART PER UNIT CHARGE SC SCH (23:23)
[2024-08-12] MEDS: METOPROLOL TARTRATE 1 MG/ML VIAL IV STA ×2 (02:41→07:27)
[2024-08-12] MEDS: METOPROLOL TARTRATE 1 MG/ML VIAL IV PRN (03:18)
[2024-08-12 06:30] LABS: Basophils # (auto) 0.07 K/uL (0.00-0.20); Basophils % (auto) 0.6 %; Eosinophils # (auto) 0.13 K/uL (0.00-0.50); Eosinophils % (auto) 1.1 %; Hematocrit (blood only) 48.7 % (42.0-52.0); Hemoglobin 17.7 g/dl (14.0-18.0); Immature Granulocytes # (auto) 0.07 K/uL (0.01-0.20); Immature Granulocytes % (auto) 0.6 %; Lymphocytes # (auto) 4.01 K/uL (1.20-3.40); Lymphocytes % (auto) 34.7 %; Mean Corpuscular Hemoglobin 30.2 pg (25.0-34.0); Mean Corpuscular Hgb Conc 36.3 g/dL (32.0-36.0); Monocytes # (auto) 0.97 K/uL (0.11-0.59); Monocytes % (auto) 8.4 %; Neutrophils % (auto) 54.6 %; Platelet Count 166 K/uL (130-400); RDW Coefficient of Variation 13.2 % (11.5-14.5); RDW Standard Deviation 39.6 fL (36.4-46.3); Red Blood Count 5.87 M/uL (4.70-6.10); White Blood Count 11.55 K/ul (4.8-10.8)
[2024-08-12 06:50] LABS: BUN Creatinine Ratio 21.8 (10-20); Calcium 9.1 mg/dl (8.6-10.3); Magnesium 1.8 mg/dl (1.7-2.4)
[2024-08-12 06:57] LABS: Troponin I High Sensitivity 4.9 pg/ml (0-20)
[2024-08-12] MEDS: TAMSULOSIN HCL 0.4 MG CAP PO SCH (07:28)
[2024-08-12 07:57] LABS: Estimated Average Glucose 192 mg/dl; Hemoglobin A1C 8.3 % (4.5-5.6)
--- NOTE | 2024-08-12 10:05 | XCELERA ---
[id number]
--- NOTE | 2024-08-12 10:57 | Hospitalist Progress Note ---
Date of Service August 12, 2024 Assessment & Plan (1) Atrial fibrillation with rapid ventricular response: Plan: 64-year-old male with past medical history significant for type 2 diabetes, diabetic nephropathy, atrial fibrillation, hypertension, BPH, tobacco use, history of cardiac radiofrequency ablation presents with rapid A-fib. A flutter/A.fib with RVR History of A-flutter; status post ablation in the past. Patient presents with palpitation. EKG on admission shows atrial flutter with variable block with ventricular rate of 122 bpm Echocardiogram shows EF of 60 to 65%; no significant valvular pathology Given digoxin in the ED yesterday as well as IV metoprolol; ventricular rate continues to be around 100-120s. Cardiology consulted for comanagement; appreciate recommendations Continue telemonitoring IV fluid with LR for 500 cc Type 2 diabetes On trulicity which will be held Sliding scale Will monitor Recent right hand finger infection from splinter On Keflex started as outpatient last Improving,continue BPH On Flomax,continue Hypertension On metoprolol succinate, continue Mild elevation of lipase -No abdominal pain or discomfort on examination. Likely elevated due to Trulicity DVT prophylaxis On Xarelto Disposition Telemetry Full code. Time spent evaluating patient, direct bedside care, chart review, placing orders, interpretation of diagnostic studies, discussion with consultants, patient, and family members, as well as other required patient management activities is 50 minutes Please note the above document was generated using voice recognition software. It may contain grammatical, syntax or spelling errors. Any formal questions or concerns about the content, text or information contained within the body of this dictation should be directly addressed to the provider for clarification Admission and Anticipated Discharge Date Admission Date: August 11, 2024 Subjective Patient seen and examined at bedside. He is comfortable lying in the bed. Reports palpitation. He reports dizziness while getting up and moving. Physical Exam Physical Exam: General- Not in distress. Head- atraumatic Eyes- PERRL. ENT- oropharynx clear Neck- supple, no JVD. Lungs- clear to auscultation no wheezing or crackles. Heart- irregular rhythm;tachycardia, no murmur, no gallop. Abdomen- normal bowel sounds, soft, nontender, no distension. Extremities- no pretibial edema, no erythema seen Neuro- alert, oriented PERRL, EOMI; no facial palsy; no dysarthria; moves extremities Results & Data Results & Data Vital Signs (Past 12 Hours) Vital Signs Temp Pulse Pulse Resp BP BP Pulse Ox 08/12/24 10:41 36.4 C L 126 H 16 116/85 96 08/12/24 09:23 08/12/24 08:49 108 H 131/98 08/12/24 08:00 36.4 C 108 H 14 131/98 96 08/12/24 07:27 105 H 118/87 08/12/24 04:20 111 H 18 95/76 L 94 08/12/24 03:33 110 H 104/74 08/12/24 03:18 128 H 122/82 08/12/24 02:56 122 H 122/82 08/12/24 02:41 122 H 107/79 08/12/24 02:06 122 H 17 08/12/24 02:00 108/65 08/12/24 02:00 108/65 08/12/24 02:00 108/65 08/12/24 02:00 108/65 08/12/24 01:57 128 H 19 08/12/24 01:33 99 H 18 08/12/24 01:30 111/81 08/12/24 01:30 111/08/12/24 01:30 111/08/12/24 01:30 111/08/12/24 01:30 111/81 08/12/24 01:30 111/81 08/12/24 01:30 111/81 08/12/24 01:30 111/81 08/12/24 01:30 111/81 08/12/24 01:30 111/81 08/12/24 01:30 111/81 08/12/24 01:30 111/81 08/12/24 01:15 127 H 20 08/12/24 01:03 104 H 23 08/12/24 01:00 106/08/12/24 01:00 106/08/12/24 01:00 106/08/12/24 01:00 106/08/12/24 01:00 106/08/12/24 01:00 106/08/12/24 01:00 106/08/12/24 00:51 130 H 16 08/12/24 00:48 109 H 17 08/12/24 00:30 105/68 08/12/24 00:30 105/68 08/12/24 00:30 105/68 08/12/24 00:30 105/68 08/12/24 00:30 105/68 08/12/24 00:30 105/68 08/12/24 00:30 105/68 08/12/24 00:30 105/68 08/12/24 00:27 119 H 11 L 08/12/24 00:22 121 H 08/12/24 00:17 132 H 08/12/24 00:06 112 H 19 08/12/24 00:00 11778 08/12/24 00:00 11778 08/12/24 00:00 11778 08/12/24 00:00 117/78 08/12/24 00:00 11778 08/12/24 00:00 117/78 08/12/24 00:00 117/78 08/11/24 23:45 111 H 17 08/11/24 23:39 130 H 18 08/11/24 23:30 107/73 08/11/24 23:03 124 H 18 O2 Del Method 08/12/24 10:41 Room Air 08/12/24 09:23 Room Air 08/12/24 08:49 08/12/24 08:00 Room Air 08/12/24 07:27 08/12/24 04:20 Room Air 08/12/24 03:33 08/12/24 03:18 08/12/24 02:56 08/12/24 02:41 08/12/24 02:06 08/12/24 02:00 08/12/24 02:00 08/12/24 02:00 08/12/24 02:00 08/12/24 01:57 08/12/24 01:33 08/12/24 01:30 08/12/24 01:30 08/12/24 01:30 08/12/24 01:30 08/12/24 01:30 08/12/24 01:30 08/12/24 01:30 08/12/24 01:30 08/12/24 01:30 08/12/24 01:30 08/12/24 01:30 08/12/24 01:30 08/12/24 01:15 08/12/24 01:03 08/12/24 01:00 08/12/24 01:00 08/12/24 01:00 08/12/24 01:00 08/12/24 01:00 08/12/24 01:00 08/12/24 01:00 08/12/24 00:51 08/12/24 00:48 08/12/24 00:30 08/12/24 00:30 08/12/24 00:30 08/12/24 00:30 08/12/24 00:30 08/12/24 00:30 08/12/24 00:30 08/12/24 00:30 08/12/24 00:27 08/12/24 00:22 08/12/24 00:17 08/12/24 00:06 08/12/24 00:00 08/12/24 00:00 08/12/24 00:00 08/12/24 00:00 08/12/24 00:00 08/12/24 00:00 08/12/24 00:00 08/11/24 23:45 08/11/24 23:39 08/11/24 23:30 08/11/24 23:03
[2024-08-12] MEDS: LACTATED RINGER'S 1,000 ML IV SCH (11:19)
--- NOTE | 2024-08-12 11:44 | Cardiology Consultation ---
Date of Consultation August 12, 2024 Assessment & Plan (1) Atrial fibrillation with rapid ventricular response: -Ventricular response still elevated. -Would give an additional dose of flecainide 50 Mg now. -Would increase flecainide to 150 Mg twice daily. -Would use intravenous metoprolol tartrate frequently. -Would give intravenous digoxin 0.25 Mg now and repeat in 4 hours. -The patient plans to go back to [facility] for a fourth ablation attempt after hospital discharge. (2) Hypertension: -Adequate control on current regimen. -Mild LVH on current echocardiogram. History of Present Illness Attending Physician: Tawanda Floyd MD History of Present Illness Mr. Choudhary is a 64-year-old male admitted yesterday with atrial fibrillation and a rapid ventricular response. This consultation was ordered to assist in his cardiac management. Of note, the patient typically follows with Dr. Teddy dejesus in the outpatient setting. The patient was in his usual state of health until the evening prior to presentation. He noted the abrupt onset of a rapid heart rate and palpitations. He did note some orthostatic dizziness. When he awoke on the day of presentation, he was still noticing those same symptoms. Therefore, he presented to the emergency room for further care. On arrival here, he was found to be in atrial fibrillation with a rapid ventricular response. He was given intravenous metoprolol and oral digoxin. There was some improvement in his ventricular response. Hospitalization was recommended. The patient has a longstanding history of paroxysmal atrial fibrillation. He has undergone 3 separate ablations. The initial 1 [address] in [address] [facility] followed by another ablation in August 2016 at [place]. He then went out to the [facility] for an ablation in May 2019. He has been stable on rhythm control and long-term anticoagulation. Currently, patient is resting comfortably in bed without complaints. Allergies Allergy/AdvReac Type Severity Reaction Status Date / Time No Known Allergies Allergy Mild Verified 04/18/22 06:17 Home Medications Medication Instructions Recorded Confirmed Type metoprolol succinate 100 mg 50 mg (1/2 x 100 mg) PO BID #90 02/03/22 08/11/24 Rx tablet,extended release 24 hr tabs cephalexin 500 mg capsule 500 mg PO TID 08/11/24 08/11/24 History dulaglutide 4.5 mg/0.5 mL 4.5 mg subcut WK 08/11/24 08/11/24 History subcutaneous pen injector (Trulicity) flecainide 100 mg tablet 100 mg PO BID 08/11/24 08/11/24 History rivaroxaban 20 mg tablet (Xarelto) 20 mg PO PM 08/11/24 08/11/24 History tamsulosin 0.4 mg capsule 0.4 mg PO QAM 08/11/24 08/11/24 History Patient History Medical History Afib REASON FOR XARELTO Diabetes mellitus, type 2 History of COVID-19 05/2020 (CONGESTION/FATIGUE>NO CURRENT PROBLEMS) History of depression Surgical History H/O cardiac radiofrequency ablation X 3 ([place] [facility]>LAST 2 YEARS AGO) H/O elbow surgery RT ULNAR NERVE REPAIR H/O hernia repair History of colonoscopy History of tooth extraction Family History Father Family history of diabetes mellitus Other No family history of adverse response to anesthesia No pertinent family history in first degree relatives Social History Smoking Status: Light tobacco smoker Tobacco Type: Cigars Cigarettes Per Day: A COUPLE TIMES A WEEK (ADVISED); Second Hand Exposure: No; Do You Dip or Chew Tobacco: No; Tobacco Cessation Education Requested by Patient: No Hx Alcohol Use: Yes Alcohol type: beer Hx Substance Use: No Preferred Language: Greenlandic Communication Ability: Effective Group Dynamics Instructor Required: No Beliefs That Will Affect Care: None marital status: Current Living Situation: Spouse current occupational status: employed Other Information That Helps Us Care for You: No Feels Safe at Home: Yes Safety Concerns: Feels Safe At This Time Assistive Devices: None Physical Exam Physical Exam: In general is well-developed well-nourished white male in no acute distress. HEENT exam is negative. Neck is supple with full carotid upstrokes. There are no carotid bruits. Jugular is pressure is flat at 90 degrees. There is no thyromegaly. Cardiovascular exam reveals a regular rate regular rhythm with distant heart sounds. No obvious murmurs. Lungs are clear without rales, rhonchi, or wheezes. Abdomen is soft without bruits. Extremities reveal intact radial artery pulses bilaterally. There is no peripheral edema. Results & Data Vital Signs (Past 12 Hours) Vital Signs Temp Pulse Pulse Resp BP BP Pulse Ox 08/12/24 10:41 36.4 C L 126 H 16 116/85 96 08/12/24 09:23 08/12/24 08:49 108 H 131/98 08/12/24 08:00 36.4 C 108 H 14 131/98 96 08/12/24 07:27 105 H 118/87 08/12/24 04:20 111 H 18 95/76 L 94 08/12/24 03:33 110 H 104/74 08/12/24 03:18 128 H 122/82 08/12/24 02:56 122 H 122/82 08/12/24 02:41 122 H 107/79 08/12/24 02:06 122 H 17 08/12/24 02:00 108/65 08/12/24 02:00 108/65 08/12/24 02:00 108/65 08/12/24 02:00 108/65 08/12/24 01:57 128 H 19 08/12/24 01:33 99 H 18 08/12/24 01:30 111/08/12/24 01:30 111/08/12/24 01:30 111/08/12/24 01:30 111/08/12/24 01:30 111/08/12/24 01:30 111/08/12/24 01:30 111/08/12/24 01:30 111/81 08/12/24 01:30 111/81 08/12/24 01:30 111/81 08/12/24 01:30 111/81 08/12/24 01:30 111/81 08/12/24 01:15 127 H 20 08/12/24 01:03 104 H 23 08/12/24 01:00 106/71 08/12/24 01:00 106/71 08/12/24 01:00 106/71 08/12/24 01:00 106/08/12/24 01:00 106/08/12/24 01:00 106/71 08/12/24 01:00 106/71 25 00:51 130 H 16 08/12/24 00:48 109 H 17 08/12/24 00:30 105/08/12/24 00:30 105/08/12/24 00:30 105/08/12/24 00:30 10508/12/24 00:30 105/08/12/24 00:30 10508/12/24 00:30 10508/12/24 00:30 10508/12/24 00:27 119 H 11 L 08/12/24 00:22 121 H 08/12/24 00:17 132 H 08/12/24 00:06 112 H 19 08/12/24 00:00 11708/12/24 00:00 11708/12/24 00:00 11708/12/24 00:00 11708/12/24 00:00 11708/12/24 00:00 11708/12/24 00:00 11708/11/24 23:45 111 H 17 08/11/24 23:39 130 H 18 O2 Del Method 08/12/24 10:41 Room Air 08/12/24 09:23 Room Air 08/12/24 08:49 08/12/24 08:00 Room Air 08/12/24 07:27 08/12/24 04:20 Room Air 08/12/24 03:33 08/12/24 03:18 08/12/24 02:56 08/12/24 02:41 08/12/24 02:06 08/12/24 02:00 08/12/24 02:00 08/12/24 02:00 08/12/24 02:00 08/12/24 01:57 08/12/24 01:33 08/12/24 01:30 08/12/24 01:30 08/12/24 01:30 08/12/24 01:30 08/12/24 01:30 08/12/24 01:30 08/12/24 01:30 08/12/24 01:30 08/12/24 01:30 08/12/24 01:30 08/12/24 01:30 08/12/24 01:30 08/12/24 01:15 08/12/24 01:03 08/12/24 01:00 08/12/24 01:00 08/12/24 01:00 08/12/24 01:00 08/12/24 01:00 08/12/24 01:00 08/12/24 01:00 08/12/24 00:51 08/12/24 00:48 08/12/24 00:30 08/12/24 00:30 08/12/24 00:30 08/12/24 00:30 08/12/24 00:30 08/12/24 00:30 08/12/24 00:30 08/12/24 00:30 08/12/24 00:27 08/12/24 00:22 08/12/24 00:17 08/12/24 00:06 08/12/24 00:00 08/12/24 00:00 08/12/24 00:00 08/12/24 00:00 08/12/24 00:00 08/12/24 00:00 08/12/24 00:00 08/11/24 23:45 08/11/24 23:39 Laboratory Results Initial high-sensitivity troponin was 3.5 with a follow-up value 4.9. TSH level normal at 4.42. Diagnostic Findings Echocardiogram notes normal left ventricular systolic function with an ejection fraction of 60 to 65%. There is mild LVH and no valvular pathology. Compared with the study performed in March 2022, no significant change. EKG notes atrial fibrillation with a ventricular response of 98 bpm. PG Care Time/CCT Total # of Minutes Spent Total Time Spent with Patient: Total time spent is greater than 50% in coordination of care (as documented) at patient's floor/unit and/or counseling patient: Coding Level of Care Code 61454 IN/OBS CONSULT LVL 4,60M Diagnoses Atrial fibrillation with rapid ventricular response I48.91 Hypertension I10
[2024-08-12] MEDS: FLECAINIDE ACETATE 100 MG TABLET PO STA (12:26)
[2024-08-12] MEDS: DIGOXIN 250 MCG in SYRINGE 9 ML IV STA (12:27)
--- NOTE | 2024-08-12 13:09 | Electrocardiogram Report ---
Test Reason : Blood Pressure : */* mmHG Vent. Rate : 122 BPM Atrial Rate : 271 BPM P-R Int : * ms QRS Dur : 86 ms QT Int : 308 ms P-R-T Axes : * 21 90 degrees QTcB Int : 438 ms Atrial fibrillation with rapid ventricular response Septal infarct , age undetermined Abnormal ECG When compared with ECG of 19-Apr-2022 02:14, Significant changes have occurred Confirmed by Carlos Rush ([id number]) on 08/12/2024 1:08:54 PM Referred By: REFERRED SELF Confirmed By: Carlos Rush
--- NOTE | 2024-08-12 13:16 | Electrocardiogram Report ---
Test Reason : Blood Pressure : */* mmHG Vent. Rate : 98 BPM Atrial Rate : 267 BPM P-R Int : * ms QRS Dur : 96 ms QT Int : 338 ms P-R-T Axes : * 3 176 degrees QTcB Int : 431 ms Atrial fibrillation Nonspecific T wave abnormality Abnormal ECG When compared with ECG of 11-Aug-2024 16:19, (unconfirmed) Criteria for Septal infarct are no longer Present Nonspecific T wave abnormality now evident in Inferior leads Nonspecific T wave abnormality, worse in Lateral leads Confirmed by Carlos Rush ([id number]) on 08/12/2024 1:15:50 PM Referred By: REFERRED SELF Confirmed By: Carlos Rush
[2024-08-12] MEDS: DIGOXIN 250 MCG in SYRINGE 9 ML IV ONE (16:13)
[2024-08-12] MEDS: INSULIN ASPART PER UNIT CHARGE SC SCH (17:04)
[2024-08-12] MEDS: FLECAINIDE ACETATE 100 MG TABLET PO SCH (20:38)
[2024-08-13 05:08] LABS: Basophils # (auto) 0.05 K/uL (0.00-0.20); Basophils % (auto) 0.5 %; Eosinophils # (auto) 0.13 K/uL (0.00-0.50); Eosinophils % (auto) 1.3 %; Hematocrit (blood only) 49.9 % (42.0-52.0); Immature Granulocytes # (auto) 0.07 K/uL (0.01-0.20); Immature Granulocytes % (auto) 0.7 %; Lymphocytes # (auto) 3.42 K/uL (1.20-3.40); Lymphocytes % (auto) 33.8 %; Mean Corpuscular Hemoglobin 30.2 pg (25.0-34.0); Mean Corpuscular Hgb Conc 36.1 g/dL (32.0-36.0); Mean Corpuscular Volume 83.7 fL (80.0-100.0); Monocytes # (auto) 0.85 K/uL (0.11-0.59); Monocytes % (auto) 8.4 %; Neutrophils % (auto) 55.3 %; Platelet Count 148 K/uL (130-400); RDW Coefficient of Variation 13.1 % (11.5-14.5); RDW Standard Deviation 39.8 fL (36.4-46.3); Red Blood Count 5.96 M/uL (4.70-6.10); White Blood Count 10.12 K/ul (4.8-10.8)
[2024-08-13 05:24] LABS: Calcium 9.2 mg/dl (8.6-10.3); Potassium 4.7 mmol/L (3.5-5.1)
[2024-08-13 05:30] LABS: BUN Creatinine Ratio 21.2 (10-20); Creatinine Clr Calc Pharmacy 69.1 ml/min
--- NOTE | 2024-08-13 10:49 | Hospitalist Progress Note ---
Date of Service August 13, 2024 Assessment & Plan (1) Atrial fibrillation with rapid ventricular response: Plan: 64-year-old male with past medical history significant for type 2 diabetes, diabetic nephropathy, atrial fibrillation, hypertension, BPH, tobacco use, history of cardiac radiofrequency ablation presents with rapid A-fib. Atrial fibrillation with rapid ventricular rate History of A-flutter; status post ablation in the past. Patient presents with palpitation. EKG on admission shows atrial flutter with variable block with ventricular rate of 122 bpm Echocardiogram shows EF of 60 to 65%; no significant valvular pathology Given digoxin as per recommendation by cardiology; flecainide also increased 150 mg twice daily without much improvement in the ventricular rate. Await further cardiology recommendation.Also on IV metoprolol as needed Type 2 diabetes On trulicity which will be held Sliding scale Will monitor Recent right hand finger infection from splinter On Keflex started as outpatient last Improving,continue BPH On Flomax,continue Hypertension On metoprolol succinate, continue Mild elevation of lipase -No abdominal pain or discomfort on examination. Likely elevated due to Trulicity DVT prophylaxis On Xarelto Disposition Telemetry Full code. Time spent evaluating patient, direct bedside care, chart review, placing orders, interpretation of diagnostic studies, discussion with consultants, patient, and family members, as well as other required patient management acti daniela is 50 minutes Please note the above document was generated using voice recognition software. It may contain grammatical, syntax or spelling errors. Any formal questions or concerns about the content, text or information contained within the body of this dictation should be directly addressed to the provider for clarification Admission and Anticipated Discharge Date Admission Date: August 11, 2024 Subjective Patient seen and examined at bedside. He continues to report palpitation; telemetry shows atrial fibrillation with ventricular rate of 110s to 120s. Other vital signs are stable Review of Systems Review of Systems: All systems reviewed & are unremarkable except as noted in Subjective Physical Exam Physical Exam: General- Not in distress. Head- atraumatic Eyes- PERRL. ENT- oropharynx clear Neck- supple, no JVD. Lungs- clear to auscultation no wheezing or crackles. Heart- irregular rhythm;tachycardia, no murmur, no gallop. Abdomen- normal bowel sounds, soft, nontender, no distension. Extremities- no pretibial edema, no erythema seen Neuro- alert, oriented PERRL, EOMI; no facial palsy; no dysarthria; moves extremities Results & Data Results & Data Vital Signs (Past 12 Hours) Vital Signs Temp Pulse Pulse Resp BP BP BP 08/13/24 08:02 36.5 C 117 H 18 114/97 08/13/24 05:01 83 99/71 L 08/13/24 04:41 36.5 C 130 H 16 107/73 08/13/24 04:33 89 17 08/13/24 04:30 99/71 L 08/13/24 04:30 99/71 L 08/13/24 04:30 99/71 L 08/13/24 04:30 99/71 L 08/13/24 04:30 99/71 L 08/13/24 04:30 99/71 L 08/13/24 04:30 99/71 L 08/13/24 04:30 99/71 L 08/13/24 04:30 99/71 L 08/13/24 04:30 99/71 L 08/13/24 04:30 99/71 L 08/13/24 04:30 99/71 L 08/13/24 04:30 99/71 L 08/13/24 04:30 99/71 L 08/13/24 04:30 99/71 L 08/13/24 04:30 99/71 L 08/13/24 04:27 110 H 9 L 08/13/24 04:21 83 0 L 08/13/24 03:55 130 H 113/87 08/13/24 03:39 131 H 17 08/13/24 03:03 100 H 15 08/13/24 02:48 132 H 17 08/13/24 02:00 91 H 15 08/13/24 01:30 97 H 31 H 08/13/24 01:06 88 16 08/13/24 00:30 88 17 08/13/24 00:12 100 H 21 08/12/24 23:39 127 H 08/12/24 23:30 88 22 08/12/24 23:03 89 19 08/12/24 22:52 36.4 C L 111 H 17 105/73 Pulse Ox O2 Del Method 08/13/24 08:02 94 Room Air 08/13/24 05:01 08/13/24 04:41 95 Room Air 08/13/24 04:33 08/13/24 04:30 08/13/24 04:30 08/13/24 04:30 08/13/24 04:30 08/13/24 04:30 08/13/24 04:30 08/13/24 04:30 08/13/24 04:30 08/13/24 04:30 08/13/24 04:30 08/13/24 04:30 08/13/24 04:30 08/13/24 04:30 08/13/24 04:30 08/13/24 04:30 08/13/24 04:30 08/13/24 04:27 08/13/24 04:21 08/13/24 03:55 08/13/24 03:39 08/13/24 03:03 08/13/24 02:48 08/13/24 02:00 08/13/24 01:30 08/13/24 01:06 08/13/24 00:30 08/13/24 00:12 08/12/24 23:39 08/12/24 23:30 08/12/24 23:03 08/12/24 22:52 94 Room Air
--- NOTE | 2024-08-13 11:29 | Cardiology Progress Note ---
Date of Service August 13, 2024 Assessment & Plan (1) Atrial fibrillation with rapid ventricular response: Plan: -Ventricular response with borderline control. -Would give an another dose of digoxin 0.25 Mg IV. -Would start digoxin 0.25 Mg p.o. every afternoon. -Would use intravenous metoprolol tartrate frequently. -Continue flecainide 150 Mg twice daily. -Have placed him on the schedule for possible cardioversion tomorrow. -Please keep n.p.o. except medications after midnight. -The patient plans to go back to [facility] for a fourth ablation attempt after hospital discharge. (2) Hypertension: Plan: -Adequate control on current regimen. -Mild LVH on current echocardiogram. Admission and Anticipated Discharge Date Admission Date: August 11, 2024 Subjective The patient is resting comfortably in bed without complaints of chest pain or dyspnea. Does note an occasional palpitation. We have discussed proceeding with a cardioversion tomorrow if necessary. His is at the bedside. Physical Exam Physical Exam: In general is well-developed well-nourished white male in no acute distress. H EENT exam is negative. Neck is supple with full carotid upstrokes. There are no carotid bruits. Jugular is pressure is flat at 90 degrees. There is no thyromegaly. Cardiovascular exam reveals a an irregularly irregular rhythm with distant heart sounds. No obvious murmurs. Lungs are clear without rales, rhonchi, or wheezes. Abdomen is soft without bruits. Extremities reveal intact radial artery pulses bilaterally. There is no peripheral edema. Results & Data Vital Signs (Past 12 Hours) Vital Signs Temp Pulse Pulse Resp BP BP Pulse Ox 08/13/24 08:02 36.5 C 117 H 18 114/97 94 08/13/24 05:01 83 99/71 L 08/13/24 04:41 36.5 C 130 H 16 107/73 95 08/13/24 04:33 89 17 08/13/24 04:30 99/71 L 08/13/24 04:30 99/71 L 08/13/24 04:30 99/71 L 08/13/24 04:30 99/71 L 08/13/24 04:30 99/71 L 08/13/24 04:30 99/71 L 08/13/24 04:30 99/71 L 08/13/24 04:30 99/71 L 08/13/24 04:30 99/71 L 08/13/24 04:30 99/71 L 08/13/24 04:30 99/71 L 08/13/24 04:30 99/71 L 08/13/24 04:30 99/71 L 08/13/24 04:30 99/71 L 08/13/24 04:30 99/71 L 08/13/24 04:30 99/71 L 08/13/24 04:27 110 H 9 L 08/13/24 04:21 83 0 L 08/13/24 03:55 130 H 113/87 08/13/24 03:39 131 H 17 08/13/24 03:03 100 H 15 08/13/24 02:48 132 H 17 08/13/24 02:00 91 H 15 08/13/24 01:30 97 H 31 H 08/13/24 01:06 88 16 08/13/24 00:30 88 17 08/13/24 00:12 100 H 21 08/12/24 23:39 127 H 08/12/24 23:30 88 22 O2 Del Method 08/13/24 08:02 Room Air 08/13/24 05:01 08/13/24 04:41 Room Air 08/13/24 04:33 08/13/24 04:30 08/13/24 04:30 08/13/24 04:30 08/13/24 04:30 08/13/24 04:30 08/13/24 04:30 08/13/24 04:30 08/13/24 04:30 08/13/24 04:30 08/13/24 04:30 08/13/24 04:30 08/13/24 04:30 08/13/24 04:30 08/13/24 04:30 08/13/24 04:30 08/13/24 04:30 08/13/24 04:27 08/13/24 04:21 08/13/24 03:55 08/13/24 03:39 08/13/24 03:03 08/13/24 02:48 08/13/24 02:00 08/13/24 01:30 08/13/24 01:06 08/13/24 00:30 08/13/24 00:12 08/12/24 23:39 08/12/24 23:30 Diagnostic Findings radiation monitor notes atrial fibrillation with a ventricular response varying from 80 to 110 bpm. PG Care Time/CCT Total # of Minutes Spent Total Time Spent with Patient: Total time spent is greater than 50% in coordination of care (as documented) at patient's floor/unit and/or counseling patient: Coding Level of Care Code 71653 SUB INP/OBS CARE 3/50MIN Diagnoses Atrial fibrillation with rapid ventricular response I48.91 Hypertension I10
--- NOTE | 2024-08-13 12:02 | Electrocardiogram Report ---
Test Reason : Blood Pressure : */* mmHG Vent. Rate : 133 BPM Atrial Rate : 133 BPM P-R Int : 128 ms QRS Dur : 88 ms QT Int : 316 ms P-R-T Axes : * 32 191 degrees QTcB Int : 470 ms Atrial flutter Nonspecific ST and T wave abnormality Abnormal ECG When compared with ECG of 13-Aug-2024 06:28, (unconfirmed) Non-specific change in ST segment in Inferior leads Nonspecific T wave abnormality, improved in Lateral leads Confirmed by Carlos Rush ([id number]) on 08/13/2024 12:01:43 PM Referred By: REFERRED SELF Confirmed By: Carlos Rush
--- NOTE | 2024-08-13 12:02 | Electrocardiogram Report ---
Test Reason : Blood Pressure : */* mmHG Vent. Rate : 116 BPM Atrial Rate : 340 BPM P-R Int : * ms QRS Dur : 100 ms QT Int : 324 ms P-R-T Axes : * 24 180 degrees QTcB Int : 450 ms Atrial fibrillation Nonspecific T wave abnormality Abnormal ECG When compared with ECG of 12-Aug-2024 06:17, No significant change Confirmed by Carlos Rush ([id number]) on 08/13/2024 12:02:20 PM Referred By: REFERRED SELF Confirmed By: Carlos Rush
[2024-08-13] MEDS: DIGOXIN 250 MCG in SYRINGE 9 ML IV STA (12:24)
[2024-08-14 07:16] VITALS: TEMP 98.1
--- NOTE | 2024-08-14 07:27 | Anesthesiology Consultation ---
Date of Service August 14, 2024 Assessment & Plan Chart Review Chart Review: Acceptable Risk for Surgery and Patient NOT seen in Pre Admission Testing Consults Requested none ASA ASA3 Proposed Anesthesia Anesthesia Type: MAC Risk / Benefits Reviewed With: PT / POA / Parent / Guardian, Accepts Plan and Informed Consent Obtained History Surgery Operation Date: 08/14/24 07:15 Proposed Procedures p Cardioversion Career Coordinator w/Anesthesia - Bharat Hernandez MD Height/Weight Height: 5 ft 10 in Weight: 77 kg Allergies Allergy/AdvReac Type Severity Reaction Status Date / Time No Known Allergies Allergy Mild Verified 04/18/22 06:17 Medications Home Medications Medication Instructions Recorded Confirmed Last Taken metoprolol succinate 100 mg 50 mg (1/2 x 100 mg) PO BID #90 02/03/22 08/11/24 08/11/24 tablet,extended release 24 hr tabs cephalexin 500 mg capsule 500 mg PO TID 08/11/24 08/11/24 08/11/24 dulaglutide 4.5 mg/0.5 mL 4.5 mg subcut WK 08/11/24 08/11/24 Unknown subcutaneous pen injector (Trulicity) flecainide 100 mg tablet 100 mg PO BID 08/11/24 08/11/24 08/11/24 rivaroxaban 20 mg tablet (Xarelto) 20 mg PO PM 08/11/24 08/11/24 Unknown tamsulosin 0.4 mg capsule 0.4 mg PO QAM 08/11/24 08/11/24 08/11/24 Active Medications Generic Name Dose Route Start Last Admin Trade Name Freq PRN Reason Stop Dose Admin Cephalexin HCl 500 mg 08/11/24 22:15 08/13/24 20:38 Cephalexin 500 Mg Cap PO 08/18/24 22:14 500 mg QID ESTELLE Administration Protocol Flecainide Acetate 150 mg 08/12/24 21:00 08/13/24 20:37 Flecainide Acetate 100 Mg Tablet PO 09/11/24 20:59 150 mg BID ESTELLE Administration Insulin Aspart 0 units 08/12/24 16:30 08/13/24 20:56 Insulin Aspart Per Unit Charge SC 09/11/24 16:29 1 units ACHS ESTELLE Administration Metoprolol Succinate 50 mg 08/11/24 22:15 08/13/24 20:38 Metoprolol Succ 50mg Ext Rel Tab PO 09/10/24 22:14 50 mg BID ESTELLE Administration Metoprolol Tartrate 5 mg 08/11/24 21:54 08/13/24 03:55 Metoprolol Tartrate 1 Mg/Ml Vial IV 09/10/24 21:53 5 mg Q6 PRN Administration Tachycardia Rivaroxaban 20 mg 08/11/24 22:15 08/13/24 20:38 Rivaroxaban 20 Mg Tab PO 09/10/24 22:14 20 mg PM ESTELLE Administration Tamsulosin HCl 0.4 mg 08/12/24 09:00 08/13/24 08:13 Tamsulosin Hcl 0.4 Mg Cap PO 09/11/24 08:59 0.4 mg QAM ESTELLE Administration NPO Date Last Intake of Fluids: 08/13/24 Time Last Intake of Fluids: 21:00 Date Last Intake of Solids: 08/13/24 Time Last Intake of Solids: 21:00 Past Medical History Medical History History of depression History of COVID-19 05/2020 (CONGESTION/FATIGUE>NO CURRENT PROBLEMS) Diabetes mellitus, type 2 Exercise / Class Metabolic Activity II 4-5 Yardwork/Stairs/Walk up hill Past Family History Family History Father Family history of diabetes mellitus Other No family history of adverse response to anesthesia No pertinent family history in first degree relatives Past Surgical History Surgical History H/O elbow surgery RT ULNAR NERVE REPAIR H/O hernia repair History of colonoscopy History of tooth extraction H/O cardiac radiofrequency ablation X 3 ([facility]>LAST 2 YEARS AGO) Past Anesthesia History No Hx of Anesthesia Complications and No Family Hx of Anesthesia Complications History of PONV No Hx of PONV and No Hx of Motion Sickness Social History Smoking Status: Light tobacco smoker tobacco type: cigars Smoking cigarettes per day: A COUPLE TIMES A WEEK (ADVISED) Do You Dip or Chew Tobacco: No Hx Alcohol Use: Yes Alcohol type: beer alcohol intake frequency: a few times a month Hx Substance Use: No substance use type: marijuana Last Used Substance: Days (ago) Last Used Substance Other:: marijuana Review of Systems ROS Unobtainable: All systems reviewed & are unremarkable except as noted in HPI & below Physical Exam Vital Signs Last Vital Signs Temp 36.7 C 08/14/24 07:14 Pulse 92 H 08/14/24 07:14 Resp 97 H 08/14/24 07:14 BP 118/84 08/14/24 07:14 Pulse Ox 96 08/14/24 07:14 O2 Del Method Room Air 08/14/24 07:14 ENMT Mouth: no TMJ abnormality Thyromental Distance: > or= 3.5 Finger Breadths Mallampati Class: II Neck normal visual inspection and trachea midline; neck extension not limited Respiratory normal respiratory effort Auscultation: lungs clear to auscultation bilaterally Cardiovascular Rate/Rhythm: regular rate and regular rhythm Heart Sounds: no murmur Musculoskeletal Spine: normal cervical ROM Extremities: full ROM of extremities Neurologic moves all extremities Psychiatric Orientation: alert and oriented x 3 Testing Laboratory Results 08/13/24 04:51 PT 11.3 Seconds (9.0-12.0) 08/11/24 16:17 INR 1.0 (0.9-1.1) 08/11/24 16:17 Hemoglobin A1c 8.3 % (4.5-5.6) H 08/12/24 06:10 08/13/24 20:49 POC Glucose 164 H Electrocardiogram Date: 08/13/[address] and T wave abnormality Abnormal ECG When compared with ECG of 13-Aug-2024 06:28, (unconfirmed) Non-specific change in ST segment in Inferior leads Nonspecific T wave abnormality, improved in Lateral leads Confirmed by Carlos Rush ([id number]) on 08/13/2024 12:01:43 PM Echocardiogram Date: 08/12/24 EF: 60-65 LV Function: normal Valvular Disease: + no significant valvular disease
[2024-08-14 07:30] LABS: BUN Creatinine Ratio 19.5 (10-20); Calcium 9.2 mg/dl (8.6-10.3); Creatinine Clr Calc Pharmacy 63.5 ml/min; Potassium 4.7 mmol/L (3.5-5.1)
--- NOTE | 2024-08-14 07:38 | Cardioversion ---
Date of Service August 14, 2024 PG Electrical Cardioversion Rp Electrical Cardioversion Report Procedure performed: Cardioversion Indication: Patient with persistent atrial fibrillation and associated symptoms Staff it network administrator: Bharat Hernandez MD Procedure in detail: The patient was informed of the risks benefits and alternatives to the intended procedure. He understood such which proceed. He was taken to the cardiac catheterization suite holding area. A general anesthetic was administered by the Anesthesiology Service. Once appropriately anesthetized, the patient was cardioverted using 200 joules delivered in a biphasic fashion. This returned the patient to sinus rhythm. The patient tolerated procedure well, there were no immediate complications. Patient was neurologically intact subsequent to the procedure. Impression: Successful cardioversion from atrial fibrillation to normal sinus rhythm Coding Level of Care Code 56628 CARDIOVERSION, ELECTIVE Additional Codes Electrical Cardioversion Report ([id number])
[2024-08-14 07:50] VITALS: RESP 16; O2SAT 98
[2024-08-14 08:03] VITALS: BP 119/83
--- NOTE | 2024-08-14 08:13 | Cardiology Progress Note ---
Date of Service August 14, 2024 Assessment & Plan (1) Atrial fibrillation with rapid ventricular response: Plan: Status post cardioversion to sinus rhythm today. He tolerated the procedure well. He would seem reasonable to discharge him on his current medi domenico regimen which includes flecainide, metoprolol and Xarelto. Normal QTc on EKG post cardioversion. He can follow-up in the outpatient setting and consider any additional procedures or referrals at that time. No driving for 24 hours given his period of anesthesia today. (2) Hypertension: Plan: -Adequate control on current regimen. -Mild LVH on current echocardiogram. Admission and Anticipated Discharge Date Admission Date: August 11, 2024 Subjective Patient feeling better subsequent to cardioversion. Physical Exam Physical Exam: The patient is alert and oriented. Mood and affect appeared normal. He answered all questions appropriately. HEENT: Pupils are equal and reactive to light and accommodation. Extraocular movements are intact. The sclerae are anicteric. Neuro: Cranial nerves intact Lungs: Normal respiratory effort Cardiac: Regular rhythm. Extremities: There was no evidence of hypoperfusion. There is no cyanosis or clubbing. There is no edema. Skin: I did not appreciate any rashes on examination today. Results & Data Vital Signs (Past 12 Hours) Vital Signs Temp Pulse Pulse Pulse Resp BP BP 08/14/24 07:55 75 16 119/83 08/14/24 07:40 71 16 93/73 L 08/14/24 07:14 36.7 C 92 H 97 H 118/84 08/14/24 04:18 36.4 C L 66 19 119/43 L 08/14/24 00:00 143 H 08/13/24 23:49 36.4 C L 81 16 101/58 L 08/13/24 20:19 36.4 C L 67 16 113/69 Pulse Ox O2 Del Method 08/14/24 07:55 98 Room Air 08/14/24 07:40 98 Room Air 08/14/24 07:14 96 Room Air 08/14/24 04:18 96 Room Air 08/14/24 00:00 08/13/24 23:49 97 Room Air 08/13/24 20:19 94 Room Air PG Care Time/CCT Total # of Minutes Spent Total Time Spent with Patient: Total time spent is greater than 50% in coordination of care (as documented) at patient's floor/unit and/or counseling patient: Coding Level of Care Code 85234 SUB INP/OBS CARE 235MIN Diagnoses Atrial fibrillation with rapid ventricular response I48.91 Hypertension I10
--- NOTE | 2024-08-14 08:25 | Anesthesiology Progress Note ---
Date of Service August 14, 2024 Anesthesia Post Procedure Vital Signs Vital Signs: Temp Pulse Pulse Pulse Resp BP BP 08/14/24 07:55 75 16 119/83 08/14/24 07:40 71 16 93/73 L 08/14/24 07:14 36.7 C 92 H 97 H 118/84 08/14/24 04:18 36.4 C L 66 19 119/43 L 08/14/24 00:00 143 H 08/13/24 23:49 36.4 C L 81 16 101/58 L 08/13/24 20:19 36.4 C L 67 16 113/69 08/13/24 16:11 36.2 C L 72 20 109/72 08/13/24 12:24 126 H 08/13/24 11:31 36.6 C 91 H 18 112/78 Pulse Ox O2 Del Method 08/14/24 07:55 98 Room Air 08/14/24 07:40 98 Room Air 08/14/24 07:14 96 Room Air 08/14/24 04:18 96 Room Air 08/14/24 00:00 08/13/24 23:49 97 Room Air 08/13/24 20:19 94 Room Air 08/13/24 16:11 95 Room Air 08/13/24 12:24 08/13/24 11:31 93 Room Air Transfer of Care Handoff Completed per policy Notes Mental Status: alert / awake / arousable Patient Amnestic to Procedure: Yes Nausea / Vomiting: adequately controlled Pain: adequately controlled Airway Patency, RR, SpO2: stable & adequate BP & HR: stable & adequate Hydration State: stable & adequate Anesthetic Complications: no major complications apparent and Pt Satisfied with anesthetic care
[2024-08-14 09:39] VITALS: PULSE 66
--- NOTE | 2024-08-14 12:54 | Discharge Summary ---
Date of Service August 14, 2024 Admission HPI Per Admitting Provider 64-year-old male with past medical history significant for type 2 diabetes, diabetic nephropathy, atrial fibrillation, hypertension, BPH, tobacco use, history of cardiac radiofrequency ablation presents with rapid A-fib. Patient says since yesterday evening he noticed palpitations. It was constant and not abating so decided come to the ER today. Has some mild chest heaviness. No shortness of breath.. When standing up feeling dizzy. No headache. Vision is okay. No runny nose or sore throat or cough. Appetite is okay. Had some heartburn symptoms that resolved now. Normal bowel and bladder movements. Re sting comfortably. Afebrile. Past medical history. As mentioned above Past surgical history. Colonoscopy. Right arm ulnar nerve repair. Repair of inguinal hernia. Social history. . Smokes cigar. Alcohol rarely. No drug use. Family history. Father had IL. Paternal grandfather had a heart disorder. Admission Exam Per Admitting Provider General- Not in distress. Head- atraumatic Eyes- PERRL. ENT- oropharynx clear Neck- supple, no JVD. Lungs- clear to auscultation no wheezing or crackles. Heart- irregular rhythm;tachycardia, no murmur, no gallop. Abdomen- normal bowel sounds, soft, nontender, no distension. Extremities- no pretibial edema, no erythema seen Neuro- alert, oriented PERRL, EOMI; no facial palsy; no dysarthria; moves extremities Principal Diagnosis Atrial fibrillation with RVR status post cardioversion on August 14, 2024 Discharge Exam General- Not in distress. Head- atraumatic Eyes- PERRL. ENT- oropharynx clear Neck- supple, no JVD. Lungs- clear to auscultation no wheezing or crackles. Heart- irregular rhythm;tachycardia, no murmur, no gallop. Abdomen- normal bowel sounds, soft, nontender, no distension. Extremities- no pretibial edema, no erythema seen Neuro- alert, oriented PERRL, EOMI; no facial palsy; no dysarthria; moves extremities Discharge Data Allergies Allergy/AdvReac Type Severity Reaction Status Date / Time No Known Allergies Allergy Mild Verified 04/18/22 06:17 Consultations 08/11/24 19:05 ED Decision to Admit Stat 08/12/24 05:00 Consult Cardiology Routine Procedures Performed Operation Date: 08/14/24 07:15 Actual Procedures p Cardioversion - Bharat Hernandez MD Hospital Course (1) Atrial fibrillation with rapid ventricular response: 64-year-old male with past medical history significant for type 2 diabetes, diabetic nephropathy, atrial fibrillation, hypertension, BPH, tobacco use, history of cardiac radiofrequency ablation presents with rapid A-fib. Atrial fibrillation with rapid ventricular rate History of A-flutter; status post ablation in the past. Patient presents with palpitation. EKG on admission shows atrial flutter with variable block with ventricular rate of 122 bpm Echocardiogram shows EF of 60 to 65%; no significant valvular pathology During the hospitalization, patient was admitted to telemetry floor. Cardiology was consulted for comanagement. Patient was given trial of multiple medications including digoxin, IV metoprolol without any success. Patient continued to be in atrial fibrillation with rvr. Flecainide dose was increased to 150 mg twice daily as per cardiology recommendation. On 08/14, patient underwent electric cardioversion; converted to sinus rhythm. Patient reported feeling better after the procedure. He denies any palpitation, chest pain or chest discomfort. Patient was discharged home with instructions to follow-up with PCP and cardiology. Please note the above document was generated using voice recognition software. It may contain grammatical, syntax or spelling errors. Any formal questions or concerns about the content, text or information contained within the body of this dictation should be directly addressed to the provider for clarification Total Time Total Time Spent Total Time Spent (In Minutes): 45 Total Time Includes: Examination of the Patient, Discharge Planning, Medication Reconciliation, Communication With Other Providers and Other Discharge Plan Discharge Items Patient Disposition: Home - Self-Care Reason For Visit: RAPID AFIB Discharge Diagnosis: A-fib with RVR Activity: Resume your previous activity Non-emergency contact: Primary Care Provider Call non-emergency contact if: you have any medication questions and your symptoms worsen Follow-up/Referrals: Augusto Rico MD [Primary Care Provider] - Diet: Regular Addtl Attending Provider Instructions: You were admitted to the hospital due to atrial fibrillation with rapid ventricu lar rate. You were evaluated by cardiology; underwent cardioversion on 08/14. Cardiology recommends increase of flecainide to 150 mg twice daily from 100 mg twice daily. Please follow-up with cardiology as scheduled. Pending Studies at Discharge: No Stand-Alone Forms: My [facility], Smoking Cessation Medications and DC Order Prescriptions: Continued metoprolol succinate 100 mg tablet extended release 24 hr 50 mg PO BID Qty: 90 3RF tamsulosin 0.4 mg Capsule 0.4 mg PO QAM cephalexin 500 mg capsule 500 mg PO TID Trulicity 4.5 mg/0.5 mL pen injector 4.5 mg SUBCUT WK Xarelto 20 mg tablet 20 mg PO PM Changed flecainide 100 mg tablet 150 mg PO BID Qty: 60 0RF Discharge Orders: Discharge Order (Routine); Ordered 08/14/24 Ordered By: Tawanda Jaime/Other Patient Handouts: Managing Type 2 Diabetes, How to Check Your Blood Sugar Admission Data Admit Date/Time: 08/11/24 19:57 Attending Provider: Tawanda Floyd Admit Provider: Brent Grace Primary Care Provider: Augusto Rico Other Providers: Brent Grace; Yovany Roman; Jim Palafox; Carlos Rush; Leonard Gunn; Reji Brennan; Tam Bradley Jr; Ant Tran; Annabel Ayoub; Alissa Thornton; Bharat Shi; Bharat Hernandez; Jorge Barrios; Basilia Reynolds; Akbar Wilkinson; Natividad Booth; Akbar Rankin; Alfonso Stevens; Matteo Ramirez Other Interventions: Discharge Summary Assessment (RN) Last Done: 08/14/24 09:38
--- NOTE | 2024-08-14 14:43 | Electrocardiogram Report ---
Test Reason : Blood Pressure : */* mmHG Vent. Rate : 66 BPM Atrial Rate : 66 BPM P-R Int : 190 ms QRS Dur : 100 ms QT Int : 420 ms P-R-T Axes : 32 31 52 degrees QTcB Int : 440 ms Normal sinus rhythm Normal ECG When compared with ECG of 13-Aug-2024 08:13, Vent. rate has decreased by 67 bpm Nonspecific T wave abnormality no longer evident in Lateral leads Confirmed by Bharat Hernandez ([id number] on 08/14/2024 2:42:43 PM Referred By: REFERRED SELF Confirmed By: Bharat Hernandez
[2024-08-14] MEDS ORDERED: DIGOXIN 0.25 MG TAB PO SCH (16:00)
== END 2024-08-14 09:39 | disposition home or self-care (01) | DRG 310 ==
LOC: ED 16:05 → 2E 19:57